=== PATIENT | female | born 1955 | race Hispanic/Latino ===

== ENCOUNTER 2018-05-29 17:48 | Emergency (ER) | payer MEDICAID ==
[2018-05-29 18:46] VITALS: BMI 18.8
[2018-05-29 18:52] VITALS: RESP 18; O2SAT 95
--- NOTE | 2018-05-29 20:26 | ED PDOC ---
Arrival/HPI - General Chief Complaint: Med Refill Time Seen by Provider: 05/29/18 20:21 Historian: Patient - History of Present Illness Narrative History of Present Illness (Text): 05/29/18 20:26 Marsha Guan is a 63 year old female, whose past medical history includes COPD, hyperlipidemia, and anxiety, who presents to the Emergency department requesting prescription refills. Patient states she has been unable to schedule an appointment with her PMD and is requesting refills of her Albuterol, Atrovent, and Oxycodone. Patient states she feels fine currently and denies any somatic complaints. Symptom Onset: Gradual Symptom Course: Unchanged Activities at Onset: Light Context: Home Past Medical History - Provider Review Nursing Documentation Reviewed: Yes - Infectious Disease Hx of Infectious Diseases: None - Pulmonary Hx Chronic Obstructive Pulmonary Disease (COPD): Yes - Musculoskeletal/Rheumatological Hx Back Pain: Yes Hx Falls: Yes - Psychiatric Hx Depression: No Hx Emotional Abuse: No Hx Physical Abuse: No Hx Substance Use: No - Suicidal Assessment Feels Threatened In Home Enviroment: No Family/Social History - Physician Review Nursing Documentation Reviewed: Yes Family/Social History: Unknown Family HX Smoking Status: Current Some Days Smoker Hx Alcohol Use: No Hx Substance Use: No Hx Substance Use Treatment: No Allergies/Home Meds Allergies/Adverse Reactions: Allergies No Known Allergies Allergy (Verified 04/19/12 20:07) Home Medications: Home Meds Medication Instructions Recorded Confirmed Acetaminophen/Oxycodone Hydr 04/19/12 04/19/12 [Percocet 325 mg-10 mg] Tiotropium [Spiriva] 8 mcg INH 04/19/12 04/19/12 Review of Systems - Physician Review All systems were reviewed & negative as marked: Yes - Review of Systems Constitutional: absent: Fevers Eyes: Normal ENT: Normal Respiratory: Normal. absent: SOB, Cough Cardiovascular: Normal. absent: Chest Pain Gastrointestinal: Normal. absent: Abdominal Pain, Diarrhea, Nausea, Vomiting Genitourinary Female: Normal. absent: Dysuria, Frequency, Hematuria, Urine Output Changes Musculoskeletal: Normal. absent: Back Pain, Neck Pain Skin: Normal. absent: Rash Neurological: Normal. absent: Headache, Dizziness Endocrine: Normal Hemo/Lymphatic: Normal Psychiatric: Normal Physical Exam Vital Signs Reviewed: Yes Vital Signs Temp Pulse Resp BP Pulse Ox 05/29/18 18:51 98.5 F 99 H 18 173/81 H 95 Temperature: Afebrile Blood Pressure: Hypertensive Pulse: Regular Respiratory Rate: Normal Appearance: Positive for: Well-Appearing, Non-Toxic, Comfortable Pain Distress: None Mental Status: Positive for: Alert and Oriented X 3 - Systems Exam Head: Present: Atraumatic, Normocephalic Pupils: Present: PERRL Extroacular Muscles: Present: EOMI Conjunctiva: Present: Normal Mouth: Present: Moist Mucous Membranes Neck: Present: Normal Range of Motion Back: Present: Normal Inspection. No: CVA Tenderness, Midline Tenderness, Paraspinal Tenderness Upper Extremity: Present: Normal Inspection. No: Cyanosis, Edema Lower Extremity: Present: Normal Inspection. No: Edema Neurological: Present: GCS=15, CN II-XII Intact, Speech Normal Skin: Present: Warm, Dry, Normal Color. No: Rashes Psychiatric: Present: Alert, Oriented x 3, Normal Insight, Normal Concentration Medical Decision Making ED Course and Treatment: 05/29/18 20:26 Impression: 63 year old female presents requesting medical refills. Plan: -- Reassess and disposition Progress Notes: Patient is in no acute distress. Patient is stable for discharge. Patient was instructed to follow up with the clinic if she is unable to schedule an appointment with her PMD for refills of her daily medication. - Scribe Statement The provider has reviewed the documentation as recorded by the Desiree Alejandro Provider Scribe Attestation: All medical record entries made by the Scribelieser were at my direction and personally dictated by me. I have reviewed the chart and agree that the record accurately reflects my personal performance of the history, physical exam, medical decision making, and the department course for this patient. I have also personally directed, reviewed, and agree with the discharge instructions and disposition. Disposition/Present on Arrival - Present on Arrival Any Indicators Present on Arrival: No History of DVT/PE: No History of Uncontrolled Diabetes: No Urinary Catheter: No History of Decub. Ulcer: No History Surgical Site Infection Following: None - Disposition Have Diagnosis and Disposition been Completed?: Yes Diagnosis: Encounter for medication refill Disposition: HOME/ ROUTINE Disposition Time: 20:28 Patient Plan: Discharge Patient Problems: Current Active Problems Problem Status Onset Encounter for medication refill Acute Condition: STABLE Additional Instructions: [facility] Prescriptions: Albuterol 0.083% [Albuterol 0.083% Inhal Anaya (2.5 mg/3 ml) UD] 3 ml IH Q4 PRN #1 pkg PRN Reason: Wheezing Fluticasone Propionate [Flovent Hfa] 2 puff IH BID #1 ml oxyCODONE [oxyCODONE Immediate Release Tab] 20 mg PO QID PRN #10 tab PRN Reason: Pain, Moderate (4-7) Referrals: Sánchez Bauer MD [Primary Care Provider] - Follow up with primary [facility] [Outside] - Follow up with primary Francie Emmanuel MD [Medical Doctor] - Follow up with primary Forms: [employer] (Bengali)
[2018-05-29 20:48] VITALS: BP 169/72; PULSE 92; TEMP 98.4
== END 2018-05-29 20:36 | disposition home or self-care (01) ==
LOC: ED 17:48
DX: Z76.0 Encounter for issue of repeat prescription (principal); E78.5 Hyperlipidemia, unspecified; J44.9 Chronic obstructive pulmonary disease, unspecified; F41.9 Anxiety disorder, unspecified

== ENCOUNTER 2018-06-19 16:09 | Emergency (ER) | payer MEDICAID ==
[2018-06-19 16:11] VITALS: BMI 18.8
[2018-06-19 18:27] VITALS: BP 150/90; PULSE 110; RESP 18; TEMP 98; O2SAT 96
--- NOTE | 2018-06-19 19:03 | ED PDOC ---
Arrival/HPI - General Chief Complaint: Med Refill Time Seen by Provider: 06/19/18 18:34 Historian: Patient - History of Present Illness Narrative History of Present Illness (Text): 06/19/18 19:21 63F w/ h/o chronic back pain presenting to the Emergency Room for a medication refill. Patient states she had run out of her Percocet that was last seen on the 05/29/18 with similar complaint and was discharged with 10 tabs of 10/325mg of Percocet lasting her 3 days. The patient reports securing and visit with a roller painter, but is requesting pain medications until she able to see her new physician. She denies any somatic complaints such as chest pain, shortness of breath, fevers, chills, abdominal pain, nausea or emesis at this time. PCP: Dr. Barnes Time/Duration: Prior to Arrival Symptom Onset: Sudden Symptom Course: Unchanged Activities at Onset: Rest Context: Home Past Medical History - Provider Review Nursing Documentation Reviewed: Yes - Travel History Have you recently traveled outside [place] w/in the past 3 mons?: No - Infectious Disease Hx of Infectious Diseases: None - Reproductive Menopause: Yes - Cardiac Hx Cardiac Disorders: No - Pulmonary Hx Chronic Obstructive Pulmonary Disease (COPD): Yes - Neurological Hx Neurological Disorder: No - HEENT Hx HEENT Disorder: No - Renal Hx Renal Disorder: No - Endocrine/Metabolic Hx Endocrine Disorders: No - Hematological/Oncological Hx Blood Disorders: No - Integumentary Hx Dermatological Disorder: No - Musculoskeletal/Rheumatological Hx Back Pain: Yes Hx Falls: Yes - Gastrointestinal Hx Gastrointestinal Disorders: No - Genitourinary/Gynecological Hx Genitourinary Disorders: No - Psychiatric Hx Psychophysiologic Disorder: No Hx Substance Use: No - Anesthesia Hx Anesthesia: No - Suicidal Assessment Feels Threatened In Home Enviroment: No Family/Social History - Physician Review Nursing Documentation Reviewed: Yes Family/Social History: Unknown Family HX Smoking Status: Current Some Days Smoker Hx Alcohol Use: No Hx Substance Use: No Hx Substance Use Treatment: No Allergies/Home Meds Allergies/Adverse Reactions: Allergies No Known Allergies Allergy (Verified 04/19/12 20:07) Home Medications: Home Meds Medication Instructions Recorded Confirmed Acetaminophen/Oxycodone Hydr 04/19/12 04/19/12 [Percocet 325 mg-10 mg] Tiotropium [Spiriva] 8 mcg INH 04/19/12 04/19/12 Review of Systems - Physician Review All systems were reviewed & negative as marked: Yes Physical Exam Vital Signs Reviewed: Yes Vital Signs Temp Pulse Resp BP Pulse Ox 06/19/18 18:26 98.0 F 110 H 18 150/90 96 Temperature: Afebrile Blood Pressure: Normal Pulse: Tachycardic Respiratory Rate: Normal Appearance: Positive for: Well-Appearing, Non-Toxic, Comfortable Mental Status: Positive for: Alert and Oriented X 3 - Systems Exam Head: Present: Atraumatic, Normocephalic Pupils: Present: PERRL Extroacular Muscles: Present: EOMI Conjunctiva: Present: Normal Mouth: Present: Moist Mucous Membranes Respiratory/Chest: Present: Clear to Auscultation, Good Air Exchange Cardiovascular: Present: Regular Rate and Rhythm, Normal S1, S2 Neurological: Present: GCS=15, Speech Normal Skin: Present: Warm, Dry, Normal Color Psychiatric: Present: Alert, Oriented x 3, Normal Insight, Normal Concentration Medical Decision Making ED Course and Treatment: 06/19/18 19:12 Impression 63F w/ h/o of chronic pain presenting for medication refill Plan --[place] --Reassess & disposition Progress Notes [place] evidence of patient refilling medication in between her last ER visit on 05/29/2018 and current ER visit. Patient urged to follow up with her PCP for medications and will only be given 4 pills for a 3 day course. She demonstrates understanding and will follow up with her PCP. She is stable for DC. Disposition/Present on Arrival - Present on Arrival Any Indicators Present on Arrival: No History of DVT/PE: No History of Uncontrolled Diabetes: No Urinary Catheter: No History of Decub. Ulcer: No History Surgical Site Infection Following: None - Disposition Have Diagnosis and Disposition been Completed?: Yes Diagnosis: Medication refill Disposition: HOME/ ROUTINE Disposition Time: 19:00 Patient Plan: Discharge Condition: STABLE Print Language: ETHIOPIAN Additional Instructions: Please follow up with your PCP for pain medications Prescriptions: Oxycodone HCl/Acetaminophen [Percocet 10-325 mg Tablet] 1 each PO PRN PRN 3 Days #4 tablet PRN Reason: Pain, Moderate (4-7) Referrals: Natalia Barnes MD [Staff Provider] - Follow up with primary
== END 2018-06-19 19:14 | disposition home or self-care (01) ==
LOC: ED 16:09
DX: Z76.0 Encounter for issue of repeat prescription (principal)

== ENCOUNTER 2018-06-27 19:05 | Emergency (ER) | payer MEDICAID ==
[2018-06-27 19:06] VITALS: BMI 18.8
[2018-06-27] MEDS ORDERED: oxyCODONE 20 mg Immediate Release Tab PO STA (19:40)
[2018-06-27] MEDS ORDERED: oxyCODONE 10 mg Immediate Release Tab PO STA (19:40)
--- NOTE | 2018-06-27 19:42 | ED PDOC ---
Arrival/HPI - General Chief Complaint: Med Refill Time Seen by Provider: 06/27/18 19:23 Historian: Patient - History of Present Illness Narrative History of Present Illness (Text): 06/27/18 19:38 63 year old female, with past medical history of chronic lower back pain, presents to the ED for pain medication refill today. Patient reports running out of her oxycodon after last prescription refill here in the ED on 06/19/18. Haily ent informs visiting her pain management doctor on 06/25/18, however was advised to come to the ED instead for prescription refill. Patient currently denies any somatic complaints. Patient denies any fevers, chills, headache, dizziness, chest pain, shortness of breath, dyspnea on exertion, cough, abdominal pain, nausea, vomiting, diarrhea, back pain, neck pain, or any other complaints. Time/Duration: Prior to Arrival Symptom Onset: Gradual Activities at Onset: Light Context: Home Past Medical History - Provider Review Nursing Documentation Reviewed: Yes - Infectious Disease Hx of Infectious Diseases: None - Cardiac Hx Cardiac Disorders: No - Pulmonary Hx Respiratory Disorders: Yes Hx Chronic Obstructive Pulmonary Disease (COPD): Yes - Neurological Hx Neurological Disorder: No - HEENT Hx HEENT Disorder: No - Renal Hx Renal Disorder: No - Endocrine/Metabolic Hx Endocrine Disorders: No - Hematological/Oncological Hx Blood Disorders: No - Integumentary Hx Dermatological Disorder: No - Musculoskeletal/Rheumatological Hx Musculoskeletal Disorders: Yes Hx Back Pain: Yes Hx Falls: Yes - Gastrointestinal Hx Gastrointestinal Disorders: No - Genitourinary/Gynecological Hx Genitourinary Disorders: No - Psychiatric Hx Psychophysiologic Disorder: No Hx Substance Use: No - Anesthesia Hx Anesthesia: No - Suicidal Assessment Feels Threatened In Home Enviroment: No Family/Social History - Physician Review Nursing Documentation Reviewed: Yes Family/Social History: No Known Family HX Smoking Status: Current Some Days Smoker Hx Alcohol Use: No Hx Substance Use: No Hx Substance Use Treatment: No Allergies/Home Meds Allergies/Adverse Reactions: Allergies No Known Allergies Allergy (Verified 07/02/18 21:11) Home Medications: Home Meds Medication Instructions Recorded Confirmed Tiotropium [Spiriva] 8 mcg INH DAILY 04/19/12 07/02/18 Review of Systems - Physician Review All systems were reviewed & negative as marked: Yes - Review of Systems Constitutional: absent: Fevers Respiratory: absent: SOB, Cough Cardiovascular: absent: Chest Pain Gastrointestinal: absent: Abdominal Pain, Nausea, Vomiting Genitourinary Female: absent: Dysuria, Urine Output Changes Musculoskeletal: absent: Neck Pain Skin: absent: Rash Neurological: absent: Headache, Dizziness Psychiatric: absent: Anxiety Physical Exam Vital Signs Reviewed: Yes Vital Signs Temp Pulse Resp BP Pulse Ox 06/27/18 19:16 98.8 F 102 H 16 164/87 H 97 Temperature: Afebrile Blood Pressure: Normal Pulse: Tachycardic Respiratory Rate: Normal Appearance: Positive for: Well-Appearing, Non-Toxic, Comfortable Pain Distress: None Mental Status: Positive for: Alert and Oriented X 3 - Systems Exam Head: Present: Atraumatic, Normocephalic Pupils: Present: PERRL Extroacular Muscles: Present: EOMI Conjunctiva: Present: Normal Neck: Present: Normal Range of Motion Respiratory/Chest: Present: Clear to Auscultation, Good Air Exchange. No: Respiratory Distress, Accessory Muscle Use Cardiovascular: Present: Regular Rate and Rhythm, Normal S1, S2. No: Murmurs Abdomen: No: Tenderness, Distention, Peritoneal Signs Back: Present: Normal Inspection Upper Extremity: Present: Normal Inspection. No: Cyanosis, Edema Lower Extremity: Present: Normal Inspection. No: Edema Neurological: Present: GCS=15, CN II-XII Intact, Speech Normal Skin: Present: Warm, Dry, Normal Color. No: Rashes Psychiatric: Present: Alert, Oriented x 3, Normal Insight, Normal Concentration Medical Decision Making ED Course and Treatment: 06/27/18 19:43 Impression: 63 year old female presents to the ED for pain medication refill. Plan: -- Prescription Refill -- Reassess and disposition Prior Visits: Notes and results from previous visits were reviewed. Progress Notes: 06/27/18 19:43 JANES PNP reviewed, shows no recent prescription refill in the last 8 days. Patient will be provided refill for 10 days in the ED and advised to follow-up with a new pain management doctor or her PMD for further medication management. - Scribe Statement The provider has reviewed the documentation as recorded by the Scribe Anna Hernández. All medical record entries made by the Scribe were at my direction and personally dictated by me. I have reviewed the chart and agree that the record accurately reflects my personal performance of the history, physical exam, medical decision making, and the department course for this patient. I have also personally directed, reviewed, and agree with the discharge instructions and disposition. Disposition/Present on Arrival - Present on Arrival Any Indicators Present on Arrival: No History of DVT/PE: No History of Uncontrolled Diabetes: No Urinary Catheter: No History of Decub. Ulcer: No History Surgical Site Infection Following: None - Disposition Have Diagnosis and Disposition been Completed?: Yes Diagnosis: Chronic pain Disposition: HOME/ ROUTINE Disposition Time: 20:00 Condition: GOOD Discharge Instructions (ExitCare): Chronic Pain (DC) Forms: [employer] (Slovak)
[2018-06-27 20:05] VITALS: BP 147/68; PULSE 89; RESP 18; TEMP 98.7; O2SAT 99
== END 2018-06-27 20:00 | disposition home or self-care (01) ==
LOC: ED 19:05
DX: G89.29 Other chronic pain (principal)

== ENCOUNTER 2018-07-02 21:04 | Emergency (ER) | payer MEDICAID ==
[2018-07-02 21:04] VITALS: BMI 18.8
[2018-07-02 21:17] VITALS: TEMP 98.7
--- NOTE | 2018-07-02 22:07 | ED PDOC ---
Arrival/HPI - General Chief Complaint: Med Refill Historian: Patient - History of Present Illness Narrative History of Present Illness (Text): 07/02/18 22:06 63 y/o female, whose past medical history includes chronic history of lower back pain which she is chronically on oxycodone 20mg po qid, who presents to the emergency department for a medication refill of Oxycodone 20mg po qid. Patient states she is taking Oxycodone 20mg PO qid every day and is here today since she is out of it today. Patient notes the pain feels exactly the same in severity/characteristic and has not changed in comparison to before. Patient denies any new falls or injuries. Patient denies any other complaints at this time. NO urinary or bowel incontinence or retention. PMD: Jordan Savage Time/Duration: Prior to Arrival Symptom Onset: Sudden Symptom Course: Unchanged Activities at Onset: Light Past Medical History - Provider Review Nursing Documentation Reviewed: Yes - Infectious Disease Hx of Infectious Diseases: None - Cardiac Hx Cardiac Disorders: No - Pulmonary Hx Respiratory Disorders: Yes Hx Chronic Obstructive Pulmonary Disease (COPD): Yes - Neurological Hx Neurological Disorder: No - HEENT Hx HEENT Disorder: No - Renal Hx Renal Disorder: No - Endocrine/Metabolic Hx Endocrine Disorders: No - Hematological/Oncological Hx Blood Disorders: No - Integumentary Hx Dermatological Disorder: No - Musculoskeletal/Rheumatological Hx Musculoskeletal Disorders: Yes Hx Back Pain: Yes Hx Falls: Yes - Gastrointestinal Hx Gastrointestinal Disorders: No - Genitourinary/Gynecological Hx Genitourinary Disorders: No - Psychiatric Hx Psychophysiologic Disorder: No Hx Substance Use: No - Anesthesia Hx Anesthesia: No - Suicidal Assessment Feels Threatened In Home Enviroment: No Family/Social History - Physician Review Nursing Documentation Reviewed: Yes Family/Social History: No Known Family HX Smoking Status: Current Some Days Smoker Hx Alcohol Use: No Hx Substance Use: No Hx Substance Use Treatment: No Allergies/Home Meds Allergies/Adverse Reactions: Allergies No Known Allergies Allergy (Verified 07/02/18 21:11) Home Medications: Home Meds Medication Instructions Recorded Confirmed Tiotropium [Spiriva] 8 mcg INH DAILY 04/19/12 07/02/18 Review of Systems - Physician Review All systems were reviewed & negative as marked: Yes - Review of Systems Constitutional: absent: Fatigue, Fevers ENT: absent: Hearing Changes Respiratory: absent: SOB, Cough Cardiovascular: absent: Chest Pain Gastrointestinal: absent: Abdominal Pain, Nausea, Vomiting Musculoskeletal: Back Pain (+ back pain ). absent: Normal, Arthralgias, Neck Pain, Myalgias Skin: absent: Rash, Pruritis Neurological: absent: Headache, Dizziness Psychiatric: absent: Anxiety, Depression, Suicidal Ideation Physical Exam Vital Signs Reviewed: Yes Vital Signs Temp Pulse Resp BP Pulse Ox 07/02/18 21:13 98.7 F 110 H 18 115/79 95 Temperature: Afebrile Blood Pressure: Normal Pulse: Tachycardic Respiratory Rate: Normal Appearance: Positive for: Well-Appearing, Non-Toxic Pain Distress: Moderate Mental Status: Positive for: Alert and Oriented X 3 - Systems Exam Head: Present: Atraumatic, Normocephalic Pupils: Present: PERRL Extroacular Muscles: Present: EOMI Conjunctiva: Present: Normal Ears: Present: NORMAL TM, Normal Canal. No: Erythema Mouth: Present: Moist Mucous Membranes Pharnyx: Present: Normal. No: ERYTHEMA, EXUDATE, TONSILS ENLARGED Nose (External): Present: Atraumatic. No: Abrasion, Contusion, Laceration Nose (Internal): Present: Normal Inspection, No Active Bleeding. No: Rhinorrhea, Septal Hematoma, Epistaxis Neck: Present: Normal Range of Motion, Trachea Midline. No: Meningeal Signs, MIDLINE TENDERNESS, Paraspinal Tenderness, Lymphadenopathy Respiratory/Chest: Present: Clear to Auscultation, Good Air Exchange. No: Respiratory Distress, Accessory Muscle Use, Wheezes, Decreased Breath Sounds, Rales, Retracting, Rhonchi, Tachypneic, Tender to Palpation Cardiovascular: Present: Regular Rate and Rhythm, Normal S1, S2. No: Murmurs Abdomen: No: Tenderness, Distention, Peritoneal Signs, Rebound, Guarding Back: Present: Normal Inspection. No: CVA Tenderness, Midline Tenderness, Paraspinal Tenderness, Pain with Leg Raise, Decubitus Ulcer Upper Extremity: Present: Normal Inspection. No: Cyanosis, Edema Lower Extremity: Present: Normal Inspection. No: Edema Neurological: Present: GCS=15, CN II-XII Intact, Speech Normal, Motor Func Grossly Intact, Gait Normal, Memory Normal Skin: Present: Warm, Dry, Normal Color. No: Rashes Psychiatric: Present: Alert, Oriented x 3, Normal Insight, Normal Concentration Medical Decision Making ED Course and Treatment: 07/02/18 22:06 Impression: 63 year old female who presents to the emergency department for a prescription refill of Oxycodone. Plan: -- Oxycodone Immediate Release Tab 20mg PO -- Reassess and disposition Prior Visits: Notes and results from previous visits were reviewed. Progress Notes: 07/02/18 22:06 I explained to patient that we do not do prescription refills for Oxycodone, however will treat her for her pain this evening. Patient will follow up with PMD and pain management. 07/02/18 22:37 -Pt. stated that she took the pill, request to be discharged home, feels better and no pain now, stated that she is not driving home. She has cars to come pick her up. -Discharge home with lidoderm patch, follow up with your own pmd and pain management/neurosurgery within2 days, return to the ER for any new or worsening signs or symptoms. - PA / [employer] FOR[employer] SPECIALIST / Resident Statement / has reviewed & agrees with the documentation as recorded. - Scribe Statement The provider has reviewed the documentation as recorded by the Scribe Hoda Mendoza All medical record entries made by the Desiree were at my direction and personally dictated by me. I have reviewed the chart and agree that the record accurately reflects my personal performance of the history, physical exam, medical decision making, and the department course for this patient. I have also personally directed, reviewed, and agree with the discharge instructions and disposition. Disposition/Present on Arrival - Present on Arrival Any Indicators Present on Arrival: No History of DVT/PE: No History of Uncontrolled Diabetes: No Urinary Catheter: No History of Decub. Ulcer: No History Surgical Site Infection Following: None - Disposition Have Diagnosis and Disposition been Completed?: Yes Diagnosis: Pain management Disposition: HOME/ ROUTINE Disposition Time: 22:39 Patient Plan: Discharge Condition: IMPROVED Additional Instructions: Discharge home with lidoderm patch, follow up with your own pmd and pain management/neurosurgery within2 days, return to the ER for any new or worsening signs or symptoms. Prescriptions: Lidocaine 5% [Lidoderm] 1 patch TOP DAILY PRN #14 patch PRN Reason: Other Referrals: Augusto Wan MD [Staff Provider] - Follow up with primary [facility] [Outside] - Follow up with primary Forms: [employer] (Maldivian), WORK NOTE
[2018-07-02] MEDS ORDERED: oxyCODONE 10 mg Immediate Release Tab PO STA (22:14)
[2018-07-02 22:26] VITALS: BP 113/74; PULSE 90
[2018-07-02 23:14] VITALS: RESP 16; O2SAT 100
== END 2018-07-02 22:55 | disposition home or self-care (01) ==
LOC: ED 21:04
DX: G89.29 Other chronic pain (principal)

== ENCOUNTER 2018-08-08 16:50 | Outpatient (CLI) | payer MEDICAID | END 2018-08-08 16:51 | disposition home or self-care (01) | LOC: RAD 16:50 ==

== ENCOUNTER 2018-08-15 17:58 | Outpatient (CLI) | payer MEDICAID | END 2018-08-15 17:59 | disposition home or self-care (01) | LOC: RAD 17:58 ==

== ENCOUNTER 2018-09-10 22:54 | Inpatient (IN) | payer MEDICAID ==
[2018-09-10 23:02] VITALS: BMI 18.5
[2018-09-10] MEDS ORDERED: Sodium Chloride 0.9% 1,000 ML IV ONE (23:09)
--- NOTE | 2018-09-10 23:18 | ED PDOC ---
Arrival/HPI - General Chief Complaint: Abdominal Pain Time Seen by Provider: 09/10/18 22:55 - History of Present Illness Narrative History of Present Illness (Text): 63 yr old female w/ hx of COPD, chronic back pain, tonsillectomy p/w abdominal pain, nausea and vomiting. Pt notes abdominal pain is suprapubic, and epigastric, a sharp stabbing a throbbing sensation. First time occurrence. Pt notes vomiting since 9am 10 times and notes that her last meal was last night at 3am: icr cream. She notes mild dysuria but no enuresis / encoparesis or sensation loss in her legs. She denies any fall or trauma. She notes non-bilious non bloody vomiting. She notes one episode of diarrhea at 4pm, non dark, non bloody. No recent antibiotics. She otherwise denies any chest pain, shortness of breath, constipation, dark or bloody stool, headache or weakness. No other complaints Past Medical History - Infectious Disease Hx of Infectious Diseases: None - Cardiac Hx Cardiac Disorders: No - Pulmonary Hx Respiratory Disorders: Yes Hx Chronic Obstructive Pulmonary Disease (COPD): Yes - Neurological Hx Neurological Disorder: No - HEENT Hx HEENT Disorder: No - Renal Hx Renal Disorder: No - Endocrine/Metabolic Hx Endocrine Disorders: No - Hematological/Oncological Hx Blood Disorders: No - Integumentary Hx Dermatological Disorder: No - Musculoskeletal/Rheumatological Hx Musculoskeletal Disorders: Yes Hx Back Pain: Yes Hx Falls: Yes - Gastrointestinal Hx Gastrointestinal Disorders: No - Genitourinary/Gynecological Hx Genitourinary Disorders: No - Psychiatric Hx Psychophysiologic Disorder: No Hx Substance Use: No - Anesthesia Hx Anesthesia: No Hx Anesthesia Reactions: No Hx Malignant Hyperthermia: No - Suicidal Assessment Feels Threatened In Home Enviroment: No Family/Social History Family/Social History: Unknown Family HX Smoking Status: Current Some Days Smoker Hx Alcohol Use: No Hx Substance Use: No Hx Substance Use Treatment: No Allergies/Home Meds Allergies/Adverse Reactions: Allergies No Known Allergies Allergy (Verified 07/02/18 21:11) Home Medications: Home Meds Medication Instructions Recorded Confirmed Tiotropium [Spiriva] 8 mcg INH DAILY 04/19/12 09/10/18 Review of Systems - Review of Systems Constitutional: absent: Fatigue, Weight Change, Fevers Eyes: absent: Vision Changes, Photophobia ENT: absent: Hearing Changes, Tinnitus Respiratory: absent: SOB, Cough, Sputum Cardiovascular: absent: Chest Pain, Palpitations Gastrointestinal: Abdominal Pain, Diarrhea, Nausea, Vomiting. absent: Constipation, Hematochezia, Hematemesis Genitourinary Female: Dysuria. absent: Frequency, Hematuria, Urine Output Changes, Vaginal Bleeding, Vaginal Discharge Musculoskeletal: absent: Arthralgias, Back Pain, Neck Pain Skin: absent: Rash, Pruritis Neurological: absent: Headache Endocrine: absent: Diaphoresis Hemo/Lymphatic: absent: Adenopathy Physical Exam Vital Signs Temp Pulse Resp BP Pulse Ox 09/10/18 23:02 98.2 F 104 H 18 187/89 H 99 Temperature: Afebrile Blood Pressure: Hypertensive Pulse: Tachycardic Respiratory Rate: Normal Appearance: Positive for: Well-Appearing, Non-Toxic, Comfortable Pain Distress: Mild Mental Status: Positive for: Alert and Oriented X 3 - Systems Exam Head: Present: Atraumatic, Normocephalic Pupils: Present: PERRL Extroacular Muscles: Present: EOMI Conjunctiva: Present: Normal Mouth: Present: Moist Mucous Membranes Neck: Present: Normal Range of Motion. No: Meningeal Signs, MIDLINE TENDERNESS Respiratory/Chest: Present: Clear to Auscultation, Good Air Exchange. No: Respiratory Distress, Accessory Muscle Use Cardiovascular: Present: Regular Rate and Rhythm, Normal S1, S2. No: Murmurs Abdomen: Present: Tenderness (suprapubic, epigastric). No: Distention, Peritoneal Signs, McBurney's Point Tender, Rovsing's Sign Present Back: Present: Normal Inspection. No: CVA Tenderness, Midline Tenderness Upper Extremity: Present: Normal Inspection. No: Cyanosis, Edema Lower Extremity: Present: Normal Inspection. No: Edema Neurological: Present: GCS=15, CN II-XII Intact, Speech Normal Skin: Present: Warm, Dry, Normal Color. No: Rashes Psychiatric: Present: Alert, Oriented x 3, Normal Insight, Normal Concentration Medical Decision Making ED Course and Treatment: 63 yr old female p/w abdominal pain, nausea and vomiting. Epigastric and suprapubic mild tenderness on exam. No CVAT on exam. No fall or trauma. No chest pain or shortness of breath. Likely gastroenteritis given nausea vomiting but will seek CT given possible colitis. 09/10/18 23:34 EK, nsr, no stemi 09/11/18 00:41 WBC 19k, tachy at 104 initially and lactic of 3.6, code sepsis called. Pressure stable, pt in NAD, fluids running, morphine given for pain Pending CT 09/11/18 03:[address] appreciate consult w/ Dr. Javier: To admit to his service pt in NAD, agreeable to plan. Remains without guarding on abdominal re-exam. - RAD Interpretation Radiology Orders: 09/10/18 23:09 ABD & PELVIS IV CONTRAST ONLY [CT] Stat - Medication Orders Current Medication Orders: Sodium Chloride (Sodium Chloride 0.9%) 1,000 mls @ 250 mls/hr IV .Q4H ONE Stop: 09/11/18 03:08 Discontinued Medications Ondansetron HCl (Zofran Inj) 4 mg IVP STAT STA Stop: 09/10/18 23:10 Disposition/Present on Arrival - Present on Arrival Any Indicators Present on Arrival: No History of DVT/PE: No History of Uncontrolled Diabetes: No Urinary Catheter: No History of Decub. Ulcer: No History Surgical Site Infection Following: None - Disposition Have Diagnosis and Disposition been Completed?: Yes Diagnosis: Colitis, Sepsis Disposition Time: 03:53 Condition: STABLE Discharge Instructions (ExitCare): Sepsis (ED) Forms: [employer] (Turkmen)
[2018-09-10 23:29] LABS: BASO # 0.02 K/mm3 (0.0-2.0); BASO % 0.1 % (0.0-3.0); HEMOGLOBIN 17.3 g/dL (12.0-16.0); LYMPH # 1.3 (1.2-3.4); LYMPH % 6.8 % (22.0-35.0); MEAN CELL VOLUME 93.2 fl (80.0-105.0); MEAN CORPUSCULAR HEMOGLOBIN 31.7 pg (25.0-35.0); MEAN PLATELET VOLUME 10.3 fl (7.0-11.0); MONO # 0.4 (0.1-0.6); MONO % 2.2 % (1.0-6.0); PLATELET COUNT 265 10^3/uL (120.0-450.0); RBC 5.46 10^6/uL (3.5-6.1); RED CELL DISTRIBUTION WIDTH 14.2 % (11.5-14.5); WHITE BLOOD COUNT 19.8 10^3/uL (4.5-11.0)
[2018-09-10 23:38] LABS: ALB/GLOB RATIO 1.3 (1.1-1.8); ALBUMIN 5.1 g/dL (3.0-4.8); ALT/SGPT 15 U/L (7-56); AST/SGOT 34 U/L (14-36); BLOOD UREA NITROGEN 11 mg/dL (7-21); CALCIUM 10.4 mg/dL (8.4-10.5); GFR NON-AFRICAN AMERICAN > 60; LIPASE 53 U/L (23-300)
[2018-09-10] MEDS ORDERED: Iohexol 350 MG/100 ML VIAL ONE (23:48)
[2018-09-11] MEDS ORDERED: Morphine 4 mg/ml ISec IVP STA (00:08)
[2018-09-11 00:18] LABS: BAND 1 % (0-2); LYMPHOCYTE 5 % (22.0-35.0); MONOCYTE 2 % (1.0-6.0); NEUTROPHIL 92 % (50.0-70.0); PLATELET ESTIMATE NORMAL (NORMAL)
[2018-09-11 00:30] LABS: VENOUS BLOOD GAS BASE EXCESS 1.1 mmol/L (0.0-2.0); VENOUS BLOOD GAS PO2 82 mm/Hg (30-55); VENOUS BLOOD PH 7.44 (7.32-7.43)
[2018-09-11] MEDS ORDERED: cefTRIAXone 1 gm 1 GM/100 ML BAG IVPB STA (01:13)
[2018-09-11] MEDS ORDERED: Vancomycin 1gm in NS 250ml 1 GM/250 ML BAG IVPB STA (01:15)
[2018-09-11 02:41] LABS: URINE BILIRUBIN NEGATIVE (NEGATIVE); URINE BLOOD MODERATE (NEGATIVE); URINE GLUCOSE (UA) 250 mg/dL (NEGATIVE); URINE LEUKOCYTE ESTERASE NEGATIVE Leu/uL (NEGATIVE); URINE PROTEIN TRACE mg/dL (<30 mg/dL); URINE UROBILINOGEN 0.2 E.U./dL (<1 E.U./dL)
[2018-09-11 02:43] LABS: URINE COLOR YELLOW (YELLOW)
[2018-09-11 02:44] LABS: URINE APPEARANCE CLEAR (CLEAR)
[2018-09-11 03:07] LABS: URINE EPITHELIAL CELLS 0 - 2 /hpf (0-5); URINE WBC 0 - 2 /hpf (0-6)
[2018-09-11 04:31] LABS: VENOUS BLOOD GAS BASE EXCESS 2.6 mmol/L (0.0-2.0); VENOUS BLOOD GAS PO2 44 mm/Hg (30-55); VENOUS BLOOD PH 7.43 (7.32-7.43)
[2018-09-11] MEDS ORDERED: Levalbuterol 1.25 MG/3 ML Inhal Soln UD IH PRN (06:00)
[2018-09-11] MEDS ORDERED: Morphine 2 mg/ml ISec SC PRN (06:02)
[2018-09-11] MEDS ORDERED: Sodium Chloride 0.9% 1,000 ML IV SCH ×2 (06:15→16:21)
[2018-09-11] MEDS: metroNIDAZOLE IV 500 mg/100 ml 500 MG/100 ML BAG IVPB SCH ×3 (06:50→21:18)
[2018-09-11] MEDS: Arformoterol 15 mcg/2 ml Inh Sol IH SCH ×2 (07:42→20:05)
[2018-09-11] MEDS: Budesonide 0.5 mg/2 ml Inhal Susp UD IH SCH ×2 (07:43→20:05)
--- NOTE | 2018-09-11 09:35 | CARD ---
APPROVED REPORT Date of service: 09/10/2018 EKG Measurement Heart [id number] <Conclusion> Normal sinus rhythm Normal ECG
[2018-09-11] MEDS: cefTRIAXone 1 gm 1 GM/100 ML BAG IVPB SCH (09:54)
[2018-09-11 10:02] LABS: HEMOGLOBIN 15.5 g/dL (12.0-16.0); MEAN CELL VOLUME 92.8 fl (80.0-105.0); MEAN CORPUSCULAR HEMOGLOBIN 31.8 pg (25.0-35.0); MEAN CORPUSCULAR HGB CONC 34.2 g/dl (31.0-37.0); MEAN PLATELET VOLUME 10.2 fl (7.0-11.0); RBC 4.88 10^6/uL (3.5-6.1); RED CELL DISTRIBUTION WIDTH 14.2 % (11.5-14.5)
[2018-09-11 10:05] LABS: WHITE BLOOD COUNT 26.2 10^3/uL (4.5-11.0)
--- NOTE | 2018-09-11 10:25 | CT ---
Date of service: 09/11/2018 PROCEDURE: CT Abdomen and Pelvis with contrast HISTORY: abd pain, n/v COMPARISON: None. TECHNIQUE: Contrast dose: 100 cc of Omni 350 Radiation dose: Total exam DLP = 180.43 mGy-cm. This CT exam was performed using one or more of the following dose reduction techniques: Automated exposure control, adjustment of the mA and/or kV according to patient size, and/or use of iterative reconstruction technique. FINDINGS: LOWER THORAX: Unremarkable. LIVER: Unremarkable. No gross lesion or ductal dilatation. GALLBLADDER AND BILE DUCTS: Unremarkable. PANCREAS: Unremarkable. No gross lesion or ductal dilatation. SPLEEN: Unremarkable. ADRENALS: Unremarkable. No mass. KIDNEYS AND URETERS: Unremarkable. No hydronephrosis. No solid mass. VASCULATURE: Unremarkable. No aortic aneurysm. Aortic calcification BOWEL: Unremarkable. No obstruction. No gross mural thickening. APPENDIX: Normal appendix. PERITONEUM: Unremarkable. No free fluid. No free air. LYMPH NODES: Unremarkable. No enlarged lymph nodes. BLADDER: Unremarkable. REPRODUCTIVE: Unremarkable. BONES: No acute fracture. OTHER FINDINGS: The report concurs with the preliminary [facility] report IMPRESSION: Unremarkable contrast enhanced CT of the abdomen and pelvis.
[2018-09-11 10:28] LABS: ALB/GLOB RATIO 1.3 (1.1-1.8); ALBUMIN 4.2 g/dL (3.0-4.8); ALT/SGPT 13 U/L (7-56); AST/SGOT 28 U/L (14-36); BLOOD UREA NITROGEN 9 mg/dL (7-21); CALCIUM 9.4 mg/dL (8.4-10.5); GFR NON-AFRICAN AMERICAN > 60
--- NOTE | 2018-09-11 10:43 | CP.PCM.CON ---
<Vernon Omer - Last Filed: 09/11/18 16:52> History of Present Illness - History of Present Illness History of Present Illness: PGY6 GI Fellow Consult Note Patient is a 63yo female with PMHx significant for COPD, chronic back pain, anxiety, dyslipidemia, idiopathic gastroparesis (per pt), polycythemia vera (per pt) who presented with one day of abdominal pain. Pain began suddenly upon waki ng yesterday morning and was 10/10 at onset. Stabbing pains were located throughout the abdomen and did not localize to any particular spot. She developed nausea, vomiting, fever along with 2-3 episodes of loose stool in the afternoon. As pain did not subside by yesterday evening, she presented to the ED for further evaluation. At this time, symptoms have resolved and she denies any ongoing abdominal pain or nausea. Denies any recent antibiotic use, travel or sick contacts. No unusual food intake outside of carton ice cream she recently purchased the night prior to onset. 12 system ROS performed and negative except where stated PMHx: See HPI PSHx: Tonsillectomy FHx: Discussed with patient and she denies Social: Former EtOH use >10 years ago; stopped smoking 2 weeks ago; denies illicit drug use Endo: No prior endoscopic evaluations on record Past Patient History - Infectious Disease Hx of Infectious Diseases: None - Past Social History Smoking Status: Current Some Days Smoker - CARDIAC Hx Cardiac Disorders: No - PULMONARY Hx Respiratory Disorders: Yes Hx Chronic Obstructive Pulmonary Disease (COPD): Yes - NEUROLOGICAL Hx Neurological Disorder: No - HEENT Hx HEENT Problems: No - RENAL Hx Chronic Kidney Disease: No - ENDOCRINE/METABOLIC Hx Endocrine Disorders: No - HEMATOLOGICAL/ONCOLOGICAL Hx Blood Disorders: No - INTEGUMENTARY Hx Dermatological Problems: No - MUSCULOSKELETAL/RHEUMATOLOGICAL Hx Falls: Yes - GASTROINTESTINAL Hx Gastrointestinal Disorders: No - GENITOURINARY/GYNECOLOGICAL Hx Genitourinary Disorders: No - PSYCHIATRIC Hx Psychophysiologic Disorder: No Hx Substance Use: No - SURGICAL HISTORY Hx Surgeries: No - ANESTHESIA Hx Anesthesia: No Hx Anesthesia Reactions: No Hx Malignant Hyperthermia: No Meds Allergies/Adverse Reactions: Allergies Allergy/AdvReac Type Severity Reaction Status Date / Time No Known Allergies Allergy Verified 07/02/18 21:11 - Medications Medications: Current Medications Acetaminophen (Tylenol 325mg Tab) 650 mg PO Q6H PRN PRN Reason: fever 101.4 Arformoterol Tartrate (Brovana) 15 mcg IH [id number] [facility] Last Admin: 09/11/18 07:42 Dose: 15 mcg Budesonide (Pulmicort Respules) 0.5 mg IH [id number] [facility] Last Admin: 09/11/18 07:43 Dose: 0.5 mg Clonidine HCl (Catapres) 0.1 mg PO Q6H PRN PRN Reason: SBP >170 Last Admin: 09/11/18 08:47 Dose: 0.1 mg Sodium Chloride (Sodium Chloride 0.9%) 1,000 mls @ 70 mls/hr IV .[id number] [facility] Last Admin: 09/11/18 06:48 Dose: 70 mls/hr Ceftriaxone Sodium (Rocephin 1 Gram Ivpb) 1 gm in 100 mls @ 100 mls/hr IVPB DAILY [facility]; Protocol Last Admin: 09/11/18 09:54 Dose: 100 mls/hr Metronidazole (Flagyl) 500 mg in 100 mls @ 100 mls/hr IVPB Q8 [facility]; Protocol Last Admin: 09/11/18 06:50 Dose: 100 mls/hr Levalbuterol HCl (Xopenex) 1.25 mg IH Q4H PRN PRN Reason: Shortness of Breath Last Admin: 09/11/18 07:43 Dose: 1.25 mg Metoprolol Tartrate (Lopressor) 25 mg PO BRKDIN [facility] Morphine Sulfate (Morphine) 2 mg IVP Q4H PRN PRN Reason: Pain, moderate (4-7) Nicotine (Nicoderm Cq) 1 patch TD DAILY [facility] Ondansetron HCl (Zofran Inj) 4 mg IVP Q6H PRN PRN Reason: Nausea/Vomiting Last Admin: 09/11/18 10:06 Dose: 4 mg Physical Exam - Constitutional Appears: Non-toxic, No Acute Distress - Eye Exam Eye Exam: EOMI, PERRL - ENT Exam ENT Exam: Mucous Membranes Moist - Respiratory Exam Respiratory Exam: Clear to Auscultation Bilateral. absent: Rales, Rhonchi, Whee zes - Cardiovascular Exam Cardiovascular Exam: RRR, +S1, +S2 - GI/Abdominal Exam GI & Abdominal Exam: Normal Bowel Sounds, Soft. absent: Distended, Firm, Guarding, Organomegaly, Rigid, Tenderness - Extremities Exam Extremities exam: Positive for: normal inspection. Negative for: pedal edema - Neurological Exam Neurological exam: Alert, Oriented x3 - Psychiatric Exam Psychiatric exam: Normal Affect, Normal Mood - Skin Skin Exam: Dry, Warm Results - Vital Signs Recent Vital Signs: Last Vital Signs Temp 101.3 F H 09/11/18 08:26 Pulse 108 H 09/11/18 08:47 Resp 20 09/11/18 08:26 BP 171/82 H 09/11/18 08:47 Pulse Ox 95 09/11/18 08:26 - Labs Result Diagrams: 09/11/18 09:50 09/11/18 09:50 Labs: Laboratory Results - last 24 hr 09/10/18 09/10/18 09/10/18 23:12 23:12 23:58 WBC 19.8 H RBC 5.46 Hgb 17.3 H Hct 50.9 H MCV 93.2 MCH 31.7 MCHC 34.0 RDW 14.2 Plt Count 265 MPV 10.3 Neut % (Auto) 90.9 H Lymph % (Auto) 6.8 L [place] % (Auto) 2.2 Eos % (Auto) 0.0 L Baso % (Auto) 0.1 Lymph # (Auto) 1.3 [place] # (Auto) 0.4 Eos # (Auto) 0.0 Baso # (Auto) 0.02 Absolute Neuts (auto) 18.05 H Neutrophils % (Manual) 92 H Band Neutrophils % 1 Lymphocytes % (Manual) 5 L Monocytes % (Manual) 2 Platelet Evaluation Normal pO2 82 H VBG pH 7.44 H VBG pCO2 37.0 L VBG HCO3 25.1 VBG Total CO2 26.2 VBG O2 Sat (Calc) 98.0 H VBG Base Excess 1.1 VBG Potassium 3.9 Glucose 179 H Lactate 3.6 H FiO2 21.0 Crit Value Called To Felicity Crit Value Called By Blood Gas Notified Time 30 Sodium 142 142.0 Potassium 3.9 Chloride 103 101.0 Carbon Dioxide 25 Anion Gap 19 BUN 11 Creatinine 0.6 L Est GFR ( Amer) > 60 Est GFR (Non-Af Amer) > 60 Random Glucose 184 H Calcium 10.4 Total Bilirubin 0.5 AST 34 ALT 15 Alkaline Phosphatase 110 Total Protein 9.0 H Albumin 5.1 H Globulin 3.9 Albumin/Globulin Ratio 1.3 Lipase 53 Venous Blood Potassium 3.9 Urine Color Urine Appearance Urine pH Ur Specific [place] Urine Protein Urine Glucose (UA) Urine Ketones Urine Blood Urine Nitrate Urine Bilirubin Urine Urobilinogen Ur Leukocyte Esterase Urine RBC Urine WBC Ur Epithelial Cells Urine Bacteria 09/11/18 09/11/18 09/11/18 02:01 04:01 09:50 WBC 26.2 H* D RBC 4.88 Hgb 15.5 Hct 45.3 MCV 92.8 MCH 31.8 MCHC 34.2 RDW 14.2 Plt Count 240 MPV 10.2 Neut % (Auto) Lymph % (Auto) [place] % (Auto) Eos % (Auto) Baso % (Auto) Lymph # (Auto) [place] # (Auto) Eos # (Auto) Baso # (Auto) Absolute Neuts (auto) Neutrophils % (Manual) Band Neutrophils % Lymphocytes % (Manual) Monocytes % (Manual) Platelet Evaluation pO2 44 VBG pH 7.43 VBG pCO2 41.0 VBG HCO3 27.2 VBG Total CO2 28.5 H VBG O2 Sat (Calc) 82.8 H VBG Base Excess 2.6 H VBG Potassium 4.1 Glucose 151 H Lactate 1.9 FiO2 21.0 Crit Value Called To Crit Value Called By Blood Gas Notified Time Sodium 140.0 Potassium Chloride 102.0 Carbon Dioxide Anion Gap BUN Creatinine Est GFR ( Amer) Est GFR (Non-Af Amer) Random Glucose Calcium Total Bilirubin AST ALT Alkaline Phosphatase Total Protein Albumin Globulin Albumin/Globulin Ratio Lipase Venous Blood Potassium 4.1 Urine Color Yellow Urine Appearance Clear Urine pH 7.0 Ur Specific [place] 1.010 Urine Protein Trace H Urine Glucose (UA) 250 H Urine Ketones Negative Urine Blood Moderate H Urine Nitrate Negative Urine Bilirubin Negative Urine Urobilinogen 0.2 Ur Leukocyte Esterase Negative Urine RBC 2 - 5 H Urine WBC 0 - 2 Ur Epithelial Cells 0 - 2 Urine Bacteria None 09/11/18 09:50 WBC RBC Hgb Hct MCV MCH MCHC RDW Plt Count MPV Neut % (Auto) Lymph % (Auto) [place] % (Auto) Eos % (Auto) Baso % (Auto) Lymph # (Auto) [place] # (Auto) Eos # (Auto) Baso # (Auto) Absolute Neuts (auto) Neutrophils % (Manual) Band Neutrophils % Lymphocytes % (Manual) Monocytes % (Manual) Platelet Evaluation pO2 VBG pH VBG pCO2 VBG HCO3 VBG Total CO2 VBG O2 Sat (Calc) VBG Base Excess VBG Potassium Glucose Lactate FiO2 Crit Value Called To Crit Value Called By Blood Gas Notified Time Sodium 139 Potassium 3.3 L Chloride 102 Carbon Dioxide 26 Anion Gap 14 BUN 9 Creatinine 0.5 L Est GFR ( Amer) > 60 Est GFR (Non-Af Amer) > 60 Random Glucose 173 H Calcium 9.4 Total Bilirubin 0.4 AST 28 ALT 13 Alkaline Phosphatase 78 Total Protein 7.4 Albumin 4.2 Globulin 3.2 Albumin/Globulin Ratio 1.3 Lipase Venous Blood Potassium Urine Color Urine Appearance Urine pH Ur Specific [place] Urine Protein Urine Glucose (UA) Urine Ketones Urine Blood Urine Nitrate Urine Bilirubin Urine Urobilinogen Ur Leukocyte Esterase Urine RBC Urine WBC Ur Epithelial Cells Urine Bacteria Assessment & Plan - Assessment and Plan (Free Text) Assessment: Patient is a 63yo female with PMHx significant for COPD, chronic back pain, anxiety, dyslipidemia, idiopathic gastroparesis (per pt), polycythemia vera (per pt) who presented with one day of abdominal pain -Acute abdominal pain, resolved Plan: -CT reviewed - slight compression of renal vein noted in the sagittal view - 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; microscopic hematuria noted -Presume acute infectious enteritis given CT imaging and significant leukocytosis -Abdominal pain resolved presently -Supportive care -Diet as tolerated -No plan for endoscopic evaluation presently -Encourage outpatient follow up for initial screening colonoscopy - Date & Time Date: 09/11/18 Time: 07:45 <Eladio Simms V - Last Filed: 09/11/18 20:04> Meds - Medications Medications: Current Medications Acetaminophen (Tylenol 325mg Tab) 650 mg PO Q6H PRN PRN Reason: fever 101.4 Arformoterol Tartrate (Brovana) 15 mcg IH [id number] [facility] Last Admin: 09/11/18 07:42 Dose: 15 mcg Budesonide (Pulmicort Respules) 0.5 mg IH [id number] [facility] Last Admin: 09/11/18 07:43 Dose: 0.5 mg Ceftriaxone Sodium (Rocephin 1 Gram Ivpb) 1 gm in 100 mls @ 100 mls/hr IVPB DAILY [facility]; Protocol Last Admin: 09/11/18 09:54 Dose: 100 mls/hr Metronidazole (Flagyl) 500 mg in 100 mls @ 100 mls/hr IVPB Q8 [facility]; Protocol Last Admin: 09/11/18 14:15 Dose: 100 mls/hr Sodium Chloride (Sodium Chloride 0.9%) 1,000 mls @ 100 mls/hr IV .Q10H [facility] Last Admin: 09/11/18 19:12 Dose: 100 mls/hr Levalbuterol HCl (Xopenex) 1.25 mg IH Q4H PRN PRN Reason: Shortness of Breath Last Admin: 09/11/18 07:43 Dose: 1.25 mg Morphine Sulfate (Morphine) 2 mg IVP Q4H PRN PRN Reason: Pain, moderate (4-7) Last Admin: 09/11/18 14:16 Dose: 2 mg Nicotine (Nicoderm Cq) 1 patch TD DAILY [facility] Last Admin: 09/11/18 14:16 Dose: Not Given Ondansetron HCl (Zofran Inj) 4 mg IVP Q6H PRN PRN Reason: Nausea/Vomiting Last Admin: 09/11/18 10:06 Dose: 4 mg Results - Vital Signs Recent Vital Signs: Last Vital Signs Temp 98.7 F 09/11/18 17:18 Pulse 87 09/11/18 18:00 Resp 16 09/11/18 17:18 BP 94/53 L 09/11/18 17:18 Pulse Ox 95 09/11/18 17:18 - Labs Result Diagrams: 09/11/18 09:50 09/11/18 09:50 Labs: Laboratory Results - last 24 hr 09/10/18 09/10/18 09/10/18 23:12 23:12 23:58 WBC 19.8 H RBC 5.46 Hgb 17.3 H Hct 50.9 H MCV 93.2 MCH 31.7 MCHC 34.0 RDW 14.2 Plt Count 265 MPV 10.3 Neut % (Auto) 90.9 H Lymph % (Auto) 6.8 L [place] % (Auto) 2.2 Eos % (Auto) 0.0 L Baso % (Auto) 0.1 Lymph # (Auto) 1.3 [place] # (Auto) 0.4 Eos # (Auto) 0.0 Baso # (Auto) 0.02 Absolute Neuts (auto) 18.05 H Neutrophils % (Manual) 92 H Band Neutrophils % 1 Lymphocytes % (Manual) 5 L Monocytes % (Manual) 2 Platelet Evaluation Normal pO2 82 H VBG pH 7.44 H VBG pCO2 37.0 L VBG HCO3 25.1 VBG Total CO2 26.2 VBG O2 Sat (Calc) 98.0 H VBG Base Excess 1.1 VBG Potassium 3.9 Glucose 179 H Lactate 3.6 H FiO2 21.0 Crit Value Called To Felicity Crit Value Called By Blood Gas Notified Time 30 Sodium 142 142.0 Potassium 3.9 Chloride 103 101.0 Carbon Dioxide 25 Anion Gap 19 BUN 11 Creatinine 0.6 L Est GFR ( Amer) > 60 Est GFR (Non-Af Amer) > 60 Random Glucose 184 H Calcium 10.4 Total Bilirubin 0.5 AST 34 ALT 15 Alkaline Phosphatase 110 Total Protein 9.0 H Albumin 5.1 H Globulin 3.9 Albumin/Globulin Ratio 1.3 Lipase 53 Venous Blood Potassium 3.9 Urine Color Urine Appearance Urine pH Ur Specific [place] Urine Protein Urine Glucose (UA) Urine Ketones Urine Blood Urine Nitrate Urine Bilirubin Urine Urobilinogen Ur Leukocyte Esterase Urine RBC Urine WBC Ur Epithelial Cells Urine Bacteria 09/11/18 09/11/18 09/11/18 02:01 04:01 09:50 WBC 26.2 H* D RBC 4.88 Hgb 15.5 Hct 45.3 MCV 92.8 MCH 31.8 MCHC 34.2 RDW 14.2 Plt Count 240 MPV 10.2 Neut % (Auto) Lymph % (Auto) [place] % (Auto) Eos % (Auto) Baso % (Auto) Lymph # (Auto) [place] # (Auto) Eos # (Auto) Baso # (Auto) Absolute Neuts (auto) Neutrophils % (Manual) Band Neutrophils % Lymphocytes % (Manual) Monocytes % (Manual) Platelet Evaluation pO2 44 VBG pH 7.43 VBG pCO2 41.0 VBG HCO3 27.2 VBG Total CO2 28.5 H VBG O2 Sat (Calc) 82.8 H VBG Base Excess 2.6 H VBG Potassium 4.1 Glucose 151 H Lactate 1.9 FiO2 21.0 Crit Value Called To Crit Value Called By Blood Gas Notified Time Sodium 140.0 Potassium Chloride 102.0 Carbon Dioxide Anion Gap BUN Creatinine Est GFR ( Amer) Est GFR (Non-Af Amer) Random Glucose Calcium Total Bilirubin AST ALT Alkaline Phosphatase Total Protein Albumin Globulin Albumin/Globulin Ratio Lipase Venous Blood Potassium 4.1 Urine Color Yellow Urine Appearance Clear Urine pH 7.0 Ur Specific [place] 1.010 Urine Protein Trace H Urine Glucose (UA) 250 H Urine Ketones Negative Urine Blood Moderate H Urine Nitrate Negative Urine Bilirubin Negative Urine Urobilinogen 0.2 Ur Leukocyte Esterase Negative Urine RBC 2 - 5 H Urine WBC 0 - 2 Ur Epithelial Cells 0 - 2 Urine Bacteria None 09/11/18 09:50 WBC RBC Hgb Hct MCV MCH MCHC RDW Plt Count MPV Neut % (Auto) Lymph % (Auto) [place] % (Auto) Eos % (Auto) Baso % (Auto) Lymph # (Auto) [place] # (Auto) Eos # (Auto) Baso # (Auto) Absolute Neuts (auto) Neutrophils % (Manual) Band Neutrophils % Lymphocytes % (Manual) Monocytes % (Manual) Platelet Evaluation pO2 VBG pH VBG pCO2 VBG HCO3 VBG Total CO2 VBG O2 Sat (Calc) VBG Base Excess VBG Potassium Glucose Lactate FiO2 Crit Value Called To Crit Value Called By Blood Gas Notified Time Sodium 139 Potassium 3.3 L Chloride 102 Carbon Dioxide 26 Anion Gap 14 BUN 9 Creatinine 0.5 L Est GFR ( Amer) > 60 Est GFR (Non-Af Amer) > 60 Random Glucose 173 H Calcium 9.4 Total Bilirubin 0.4 AST 28 ALT 13 Alkaline Phosphatase 78 Total Protein 7.4 Albumin 4.2 Globulin 3.2 Albumin/Globulin Ratio 1.3 Lipase Venous Blood Potassium Urine Color Urine Appearance Urine pH Ur Specific [place] Urine Protein Urine Glucose (UA) Urine Ketones Urine Blood Urine Nitrate Urine Bilirubin Urine Urobilinogen Ur Leukocyte Esterase Urine RBC Urine WBC Ur Epithelial Cells Urine Bacteria Attending/Attestation - Attestation I have personally seen and examined this patient.: Yes I have fully participated in the care of the patient.: Yes I have reviewed all pertinent clinical information: Yes Notes (Text): This is an addendum to the GI consultation report dictated by the fellow. The patient was seen and evaluated along with the GI fellow. CT scan was reviewed. Patient is admitted with abdominal pain leukocytosis episodes of diarrhea. Prominence of the small bowel loops noticed. Possibility of enteritis to be considered. Follow-up Would recommend 1. Follow-up cultures 2. Continue the antibiotics 3. Clear liquid diet 4. Ultrasound of the abdomen. Review of the previous sonogram showed a dilated CBD Thank you Dr. Javier for allowing us to participate in the care of the patient. We will continue to closely follow-up out of care and suggest further r ecommendations based on the clinical course 09/11/18 20:01
--- NOTE | 2018-09-11 11:16 | RAD ---
Date of service: 09/11/2018 PROCEDURE: CHEST RADIOGRAPH, 1 VIEW HISTORY: sepsis COMPARISON: 11/15/2012 she is Chaitanya CREST FINDINGS: LUNGS: Clear. PLEURA: No pneumothorax or pleural fluid seen. CARDIOVASCULAR: No aortic atherosclerotic calcification present. Normal. OSSEOUS STRUCTURES: No significant abnormalities. VISUALIZED UPPER ABDOMEN: Normal. OTHER FINDINGS: None. IMPRESSION: No active disease.
[2018-09-11] MEDS: Morphine 2 mg/ml ISec IVP PRN ×2 (14:16→20:00)
--- NOTE | 2018-09-11 18:19 | CT ---
Date of service: 09/11/2018 PROCEDURE: CT Chest without contrast HISTORY: high WBC COMPARISON: None available. TECHNIQUE: Contiguous axial images were obtained through the chest without intravenous contrast enhancement. Sagittal and coronal reconstructions were performed. Radiation dose: Total exam DLP = 165.21 mGy-cm. This CT exam was performed using one or more of the following dose reduction techniques: Automated exposure control, adjustment of the mA and/or kV according to patient size, and/or use of iterative reconstruction technique. FINDINGS: LUNGS: Hyperinflation, manifestations of COPD. No active pulmonary disease. Parabronchial thickening a tests to lower airway disease/bronchitis. No evidence of mucous plugging. MEDIASTINUM: Unremarkable thoracic aorta. No aneurysm. Normal sized heart. Main pulmonary artery unremarkable. No vascular congestion. No lymphadenopathy. No aortic atherosclerotic calcification. PLEURA: No pleural fluid. No pneumothorax. BONES: No fracture. No destructive lesion. UPPER ABDOMEN: Grossly unremarkable. OTHER FINDINGS: None. IMPRESSION: No active pulmonary disease. No pulmonary masses or infiltrates identified. Hyperinflation/manifestations of COPD with bronchitic change.
[2018-09-11] MEDS ORDERED: Potassium Chloride 20 mEq ER Tab PO ONE (20:20)
--- NOTE | 2018-09-11 23:15 | CP.PCM.PN ---
<Delmar Pantoja - Last Filed: 09/11/18 23:15> Subjective - Date & Time of Evaluation Date of Evaluation: 09/11/18 Time of Evaluation: 23:08 - Subjective Subjective: Patient had one episode of 3.52 seconds of sinus pause. Patient is currently asymptomatic. She denies headaches, dizziness, shortness of breath, chest pain, diaphoresis, palpitations, or any other complaints at this time. VSS Gen: NAD, AAO X 3 Lungs: CTA b/l Cardiac: RRR, normal S1, S2. No murmurs Abd: Soft, Non-tender, normal bowel sounds Ext: No edema Plan: - Patient is asymptomatic - Consider cardiology consultation - Will monitor closely Discussed with house attending, Dr. Ventura. Delmar Pantoja, PGY-1 Objective - Vital Signs/Intake and Output Vital Signs (last 24 hours): Temp Pulse Resp BP Pulse Ox 98.7 F 87 16 94/53 L 95 09/11/18 17:18 09/11/18 18:00 09/11/18 17:18 09/11/18 17:18 09/11/18 17:18 Intake and Output: 09/11/18 09/12/18 18:59 06:59 Intake Total 840 Balance 840 - Medications Medications: Current Medications Acetaminophen (Tylenol 325mg Tab) 650 mg PO Q6H PRN PRN Reason: fever 101.4 Arformoterol Tartrate (Brovana) 15 mcg IH [id number] [facility] Last Admin: 09/11/18 20:05 Dose: 15 mcg Budesonide (Pulmicort Respules) 0.5 mg IH [id number] [facility] Last Admin: 09/11/18 20:05 Dose: 0.5 mg Ceftriaxone Sodium (Rocephin 1 Gram Ivpb) 1 gm in 100 mls @ 100 mls/hr IVPB DAILY [facility]; Protocol Last Admin: 09/11/18 09:54 Dose: 100 mls/hr Metronidazole (Flagyl) 500 mg in 100 mls @ 100 mls/hr IVPB Q8 [facility]; Protocol Last Admin: 09/11/18 21:18 Dose: 100 mls/hr Sodium Chloride (Sodium Chloride 0.9%) 1,000 mls @ 100 mls/hr IV .Q10H [facility]RE[facility] Last Admin: 09/11/18 19:12 Dose: 100 mls/hr Levalbuterol HCl (Xopenex) 1.25 mg IH Q4H PRN PRN Reason: Shortness of Breath Last Admin: 09/11/18 07:43 Dose: 1.25 mg Morphine Sulfate (Morphine) 2 mg IVP Q4H PRN PRN Reason: Pain, moderate (4-7) Last Admin: 09/11/18 20:00 Dose: 2 mg Nicotine (Nicoderm Cq) 1 patch TD DAILY [facility] Last Admin: 09/11/18 14:16 Dose: Not Given Ondansetron HCl (Zofran Inj) 4 mg IVP Q6H PRN PRN Reason: Nausea/Vomiting Last Admin: 09/11/18 10:06 Dose: 4 mg - Labs Labs: 09/11/18 09:50 09/11/18 09:50 <Linda Ventura - Last Filed: 09/12/18 07:19> Objective - Vital Signs/Intake and Output Vital Signs (last 24 hours): Temp Pulse Resp BP Pulse Ox 98.7 F 100 H 16 94/53 L 95 09/11/18 17:18 09/12/18 05:30 09/11/18 17:18 09/11/18 17:18 09/11/18 17:18 Intake and Output: 09/12/18 09/12/18 06:59 18:59 Intake Total 1080 Balance 1080 - Medications Medications: Current Medications Acetaminophen (Tylenol 325mg Tab) 650 mg PO Q6H PRN PRN Reason: fever 101.4 Arformoterol Tartrate (Brovana) 15 mcg IH [id number] [facility] Last Admin: 09/11/18 20:05 Dose: 15 mcg Budesonide (Pulmicort Respules) 0.5 mg IH [id number] [facility] Last Admin: 09/11/18 20:05 Dose: 0.5 mg Ceftriaxone Sodium (Rocephin 1 Gram Ivpb) 1 gm in 100 mls @ 100 mls/hr IVPB DAILY [facility]; Protocol Last Admin: 09/11/18 09:54 Dose: 100 mls/hr Metronidazole (Flagyl) 500 mg in 100 mls @ 100 mls/hr IVPB Q8 [facility]; Protocol Last Admin: 09/12/18 05:37 Dose: 100 mls/hr Sodium Chloride (Sodium Chloride 0.9%) 1,000 mls @ 100 mls/hr IV .Q10H [facility] Last Admin: 09/11/18 19:12 Dose: 100 mls/hr Levalbuterol HCl (Xopenex) 1.25 mg IH Q4H PRN PRN Reason: Shortness of Breath Last Admin: 09/11/18 07:43 Dose: 1.25 mg Morphine Sulfate (Morphine) 2 mg IVP Q4H PRN PRN Reason: Pain, moderate (4-7) Last Admin: 09/12/18 01:50 Dose: 2 mg Nicotine (Nicoderm Cq) 1 patch TD DAILY [facility] Last Admin: 09/11/18 14:16 Dose: Not Given Ondansetron HCl (Zofran Inj) 4 mg IVP Q6H PRN PRN Reason: Nausea/Vomiting Last Admin: 09/12/18 02:06 Dose: 4 mg - Labs Labs: 09/12/18 06:00 09/11/18 09:50 Attending/Attestation - Attestation I have personally seen and examined this patient.: No I have fully participated in the care of the patient.: No I have reviewed all pertinent clinical information, including history, physical exam and plan: No
[2018-09-12] MEDS: Morphine 2 mg/ml ISec IVP PRN ×4 (01:50→23:08)
[2018-09-12] MEDS: metroNIDAZOLE IV 500 mg/100 ml 500 MG/100 ML BAG IVPB SCH ×3 (05:37→21:45)
--- NOTE | 2018-09-12 05:55 | CON ---
DATE: 09/11/2018 The patient was seen earlier this morning in room 365, bed 2. CHIEF COMPLAINT: Abdominal pain. The patient also had diarrhea, nausea, and vomiting x1 day duration. HISTORY OF PRESENT ILLNESS: This is a 62-year-old female with past medical history significant for chronic back pain, chronic obstructive lung disease, and continues to smoke, although she says she stopped few days ago, who has no travel, no pets, and was not any antibiotics, admitted with nausea, vomiting, diarrhea. PAST MEDICAL HISTORY: Significant for chronic back pain and COPD. REVIEW OF SYSTEMS: A 12-point review of systems is performed. PAST SURGICAL HISTORY: For tonsillectomy. ALLERGIES: THE PATIENT HAS NO KNOWN ALLERGIES. MEDICATIONS AT HOME: Include Spiriva HandiHaler. PHYSICAL EXAMINATION: GENERAL: The patient is in bed, in no acute distress. She appears chronically ill, debilitated, cachectic with a temperature of 101.3 and heart rate of 104, blood pressure is 94/50 and respiratory rate of 20. Examination of HEENT is unremarkable. NECK: Supple. LUNGS: Have decreased breath sounds. HEART: Normal S1, S2. ABDOMEN: Soft, nontender. No rebound or guarding. LABORATORY EXAMINATION: Reveals a white count of 19,800; hemoglobin of 17; platelets of 265. Chemistries are noted and urinalysis is reviewed. Microbiology is pending. The patient had a CAT scan of the chest, which is ordered by Dr. Javier, which shows no active pulmonary disease, no infiltrates, hyperinflated chronic obstructive lung disease. The patient also had a CAT scan of the abdomen and pelvis, which was unremarkable. The patient had a chest x-ray. Chest x-ray is clear. ASSESSMENT AND PLAN: This is a 63-year-old female with chronic obstructive lung disease, chronic back pain, nausea, vomiting, diarrhea, abdominal cramps, and temperature of 101. 1. Sepsis with gastroenteritis. We will treat with Flagyl and ceftriaxone and pending blood cultures and stool cultures and stool for C. difficile, although the patient was not on any antibiotics. We will also order an HIV test because of her age of 63. We will make further recommendations upon availability of initial results. Gucci Piña MD
[2018-09-12 07:07] LABS: HEMOGLOBIN 15.1 g/dL (12.0-16.0); MEAN CELL VOLUME 93.3 fl (80.0-105.0); MEAN CORPUSCULAR HEMOGLOBIN 30.9 pg (25.0-35.0); MEAN CORPUSCULAR HGB CONC 33.1 g/dl (31.0-37.0); MEAN PLATELET VOLUME 10.6 fl (7.0-11.0); RBC 4.89 10^6/uL (3.5-6.1); RED CELL DISTRIBUTION WIDTH 14.5 % (11.5-14.5)
[2018-09-12 07:44] LABS: ALB/GLOB RATIO 1.3 (1.1-1.8); ALBUMIN 4.1 g/dL (3.0-4.8); ALT/SGPT 23 U/L (7-56); AST/SGOT 42 U/L (14-36); BLOOD UREA NITROGEN 10 mg/dL (7-21); CALCIUM 8.9 mg/dL (8.4-10.5); GFR NON-AFRICAN AMERICAN > 60
[2018-09-12] MEDS: Arformoterol 15 mcg/2 ml Inh Sol IH SCH (07:50)
[2018-09-12] MEDS: Budesonide 0.5 mg/2 ml Inhal Susp UD IH SCH (07:50)
[2018-09-12] MEDS: cefTRIAXone 1 gm 1 GM/100 ML BAG IVPB SCH (09:48)
--- NOTE | 2018-09-12 10:11 | CP.PCM.PN ---
<Vernon Omer - Last Filed: 09/12/18 10:08> Subjective - Date & Time of Evaluation Date of Evaluation: 09/12/18 Time of Evaluation: 07:40 - Subjective Subjective: PGY6 GI Fellow Progress Note Patient seen and examined bedside this morning. The patient states she is now having more significant loose watery stool. Also, had worsening abdominal pain last night with cramping after eating Syriac noodles that a friend brought for her despite being told to maintain a liquid diet. Nausea and vomiting this morning per patient. 12 system ROS performed and negative except where stated Objective - Vital Signs/Intake and Output Vital Signs (last 24 hours): Temp Pulse Resp BP Pulse Ox 98.2 F 101 H 20 188/94 H 97 09/12/18 08:33 09/12/18 09:41 09/12/18 08:33 09/12/18 09:41 09/12/18 08:33 Intake and Output: 09/12/18 09/12/18 06:59 18:59 Intake Total 1080 Balance 1080 - Medications Medications: Current Medications Acetaminophen (Tylenol 325mg Tab) 650 mg PO Q6H PRN PRN Reason: fever 101.4 Arformoterol Tartrate (Brovana) 15 mcg IH [id number] [facility] Last Admin: 09/12/18 07:50 Dose: Not Given Budesonide (Pulmicort Respules) 0.5 mg IH [id number] [facility]REW Last Admin: 09/12/18 07:50 Dose: Not Given Ceftriaxone Sodium (Rocephin 1 Gram Ivpb) 1 gm in 100 mls @ 100 mls/hr IVPB DAILY [facility]; Protocol Last Admin: 09/12/18 09:48 Dose: 100 mls/hr Metronidazole (Flagyl) 500 mg in 100 mls @ 100 mls/hr IVPB Q8 [facility]; Protocol Last Admin: 09/12/18 05:37 Dose: 100 mls/hr Sodium Chloride (Sodium Chloride 0.9%) 1,000 mls @ 100 mls/hr IV .Q10H [facility] Last Admin: 09/11/18 19:12 Dose: 100 mls/hr Levalbuterol HCl (Xopenex) 1.25 mg IH Q4H PRN PRN Reason: Shortness of Breath Last Admin: 09/11/18 07:43 Dose: 1.25 mg Lisinopril (Zestril) 5 mg PO DAILY [facility] Last Admin: 09/12/18 09:41 Dose: 5 mg Morphine Sulfate (Morphine) 2 mg IVP Q4H PRN PRN Reason: Pain, moderate (4-7) Last Admin: 09/12/18 09:49 Dose: 2 mg Nicotine (Nicoderm Cq) 1 patch TD DAILY [facility] Last Admin: 09/12/18 09:48 Dose: Not Given Ondansetron HCl (Zofran Inj) 4 mg IVP Q6H PRN PRN Reason: Nausea/Vomiting Last Admin: 09/12/18 08:22 Dose: 4 mg - Labs Labs: 09/12/18 06:00 09/12/18 06:00 - Constitutional Appears: Non-toxic, No Acute Distress, Older Than Stated Age - Eye Exam Eye Exam: EOMI, PERRL - ENT Exam ENT Exam: Mucous Membranes Moist - Respiratory Exam Respiratory Exam: Clear to Ausculation Bilateral. absent: Rales, Rhonchi, Wheezes - Cardiovascular Exam Cardiovascular Exam: RRR, +S1, +S2 - GI/Abdominal Exam GI & Abdominal Exam: Soft, Tenderness (diffuse, mild), Normal Bowel Sounds. absent: Distended, Firm, Guarding, Rigid, Organomegaly - Extremities Exam Extremities Exam: Normal Inspection. absent: Pedal Edema - Neurological Exam Neurological Exam: Alert, Awake, Oriented x3 - Psychiatric Exam Psychiatric exam: Anxious - Skin Skin Exam: Dry, Warm Assessment and Plan - Assessment and Plan (Free Text) Assessment: Patient is a 63yo female with PMHx significant for COPD, chronic back pain, anxiety, dyslipidemia, idiopathic gastroparesis (per pt), polycythemia vera (per pt) who presented with one day of abdominal pain -Acute abdominal pain suspect acute enteritis -Dilated CBD on U/S Plan: -Suspect acute enteritis given leukocytosis, diarrhea/pain/nausea/vomiting -Scale diet back to clear liquids and again stress avoidance of solid food for now -Ongoing supportive care -On Ceftriaxone/Flagyl IV -Stool infectious work up ordered -Monitor clinical course -U/S reviewed - H/O dilated CBD which is again demonstrated at 1cm - MRI with MRCP when clinically improved -Encourage outpatient follow up for initial screening colonoscopy <Eladio Simms V - Last Filed: 09/14/18 20:02> Objective - Vital Signs/Intake and Output Vital Signs (last 24 hours): Temp Pulse Resp BP Pulse Ox 98.6 F 92 H 20 138/81 96 09/12/18 16:26 09/12/18 18:00 09/12/18 16:26 09/12/18 16:26 09/12/18 16:26 - Medications Medications: Current Medications Acetaminophen (Tylenol 325mg Tab) 650 mg PO Q6H PRN PRN Reason: fever 101.4 Arformoterol Tartrate (Brovana) 15 mcg IH [id number] [facility] Last Admin: 09/12/18 07:50 Dose: Not Given Budesonide (Pulmicort Respules) 0.5 mg IH [id number] [facility] Last Admin: 09/12/18 07:50 Dose: Not Given Hydralazine HCl (Apresoline) 10 mg IVP Q6 PRN PRN Reason: Systolic Blood Pressure Ceftriaxone Sodium (Rocephin 1 Gram Ivpb) 1 gm in 100 mls @ 100 mls/hr IVPB DAILY [facility]; Protocol Last Admin: 09/12/18 09:48 Dose: 100 mls/hr Metronidazole (Flagyl) 500 mg in 100 mls @ 100 mls/hr IVPB Q8 [facility]; Protocol Last Admin: 09/12/18 21:45 Dose: Not Given Levalbuterol HCl (Xopenex) 1.25 mg IH Q4H PRN PRN Reason: Shortness of Breath Last Admin: 09/11/18 07:43 Dose: 1.25 mg Lisinopril (Zestril) 5 mg PO DAILY [facility] Last Admin: 09/12/18 09:41 Dose: 5 mg Morphine Sulfate (Morphine) 2 mg IVP Q4H PRN PRN Reason: Pain, moderate (4-7) Last Admin: 09/12/18 23:08 Dose: 2 mg Nicotine (Nicoderm Cq) 1 patch TD DAILY [facility] Last Admin: 09/12/18 09:48 Dose: Not Given Ondansetron HCl (Zofran Inj) 4 mg IVP Q6H PRN PRN Reason: Nausea/Vomiting Last Admin: 09/12/18 08:22 Dose: 4 mg Potassium Chloride (Klor-Con 10) 20 meq PO BRK [facility] Last Admin: 09/12/18 12:12 Dose: 20 meq - Labs Labs: 09/12/18 06:00 09/12/18 06:00 Attending/Attestation - Attestation I have personally seen and examined this patient.: Yes I have fully participated in the care of the patient.: Yes I have reviewed all pertinent clinical information, including history, physical exam and plan: Yes Notes (Text): This patient was seen and evaluated along with the GI fellow earlier today. Th is is delayed a #2 the progress note dictated by the fellow. Patient is finally agreeable for MRI of the pancreas with MRCP to further evaluate the dilated common bile duct. Clinically feeling better. Continue the antibiotics The etiology for enteritis unclear 09/12/18 23:58 09/14/18 20:00
--- NOTE | 2018-09-12 11:00 | US ---
Date of service: 09/11/2018 HISTORY: abdominal pain leucocytosis COMPARISON: None. TECHNIQUE: Sonographic evaluation of the abdomen. FINDINGS: LIVER: Measures 13.2 cm. Normal echogenicity of the liver parenchyma. No mass. No intrahepatic bile duct dilatation. GALLBLADDER: Unremarkable. No gallstones. COMMON BILE DUCT: Measures 10.9 mm. No choledocholithiasis appreciable. PANCREAS: Unremarkable as visualized. No mass. No significant ductal dilatation. RIGHT KIDNEY: Measures 9.3cm. Normal echogenicity. No calculus, mass, or hydronephrosis. LEFT KIDNEY: Measures 9.2cm. Normal echogenicity. No calculus, mass, or hydronephrosis. SPLEEN: Normal in size and contour, 9.3 cm greatest dimension. No mass. AORTA: No aneurysmal dilatation. IVC: Unremarkable. OTHER FINDINGS: None. IMPRESSION: 1. Unremarkable appearing liver with normal echogenicity diffusely noted. 2. Dilated proximal common bile duct up to 10.9 mm without choledocholithiasis appreciable. Mid distal CBD obscured by overlying bowel gas. Gallbladder appears unremarkable. Etiology of proximal visualized common bile duct dilatation unclear. Consider follow-up MRCP. 3. The remainder is unremarkable. Discordant preliminary report from [facility] (Impression No. 1), 09/11/2018, 9:13 p.m..
[2018-09-12] MEDS: Potassium Chloride 10 mEq ER Tab PO SCH (12:12)
--- NOTE | 2018-09-12 19:14 | CARD ---
APPROVED REPORT Date of service: 09/12/2018 EKG Measurement Heart [id number] [id number] <Conclusion> Sinus tachycardia Septal infarct, age undetermined Abnormal ECG
--- NOTE | 2018-09-12 20:42 | HP ---
DATE OF EXAM: 09/11/2018 HISTORY OF PRESENT ILLNESS: The patient is a 63-year-old female with a history of COPD and chronic back pain. She currently smoke and she came in because of some abdominal discomfort, abdominal pain associated with nausea, vomiting, and diarrhea for a couple of days. She has no blood in her stool. She has a fever. She has a chills. No other complaint. No specific food intake. PAST MEDICAL HISTORY: As above, COPD, and chronic back pain. PAST SURGICAL HISTORY: Tonsillectomy. ALLERGIES: THE PATIENT HAS NO KNOWN ALLERGY. FAMILY HISTORY: Noncontributory. MEDICATIONS: At home, she takes hand inhaler for COPD and Tylenol for her pain. She also takes albuterol nebulizer machine at home. REVIEW OF SYSTEMS: Significant for the above complaint; otherwise, nothing. PHYSICAL EXAMINATION: VITAL SIGNS: Her temperature 97.8, heart rate 88, blood pressure was running high in the 179/83, respirations 20, and saturation 95% on room air. HEAD AND NECK: Normal. No JVD. No thyromegaly. CHEST: Clear bilaterally. CARDIAC: First sound and second sound normal. No murmur, rub, or gallop. ABDOMEN: Soft, but there is mild tenderness, generalized more upper in the colon area and also left lower quadrant and in the upper abdomen too. Bowel sounds intact. EXTREMITIES: Lower extremity exam normal. NEUROLOGIC: Normal. Generally, the patient does not look in distress. LABORATORY DATA: Shows white count 19.8 which went up to 26.2, hemoglobin 17.3, hematocrit 50.9, and platelet is 265. Her chemistry; sodium 142, potassium 3.9, chloride 103, bicarb 25, BUN 11, creatinine 0.6, and blood sugar 184. Liver function test seems normal. Total protein is 9. Albumin also is 5.1. which is elevated. CT abdomen and pelvis is noted to be negative. IMPRESSION AND PLAN: The patient came in with fever, leukocytosis, abdominal pain, and negative CT probably; 1. Sepsis, etiology gastrointestinal in origin, viral versus bacterial unclear. We will get a blood culture and urine cultures. Put her on IV antibiotic. Infectious Disease consult, Dr. Piña and Gastroenterology consult, Dr. Simms. We will IV fluid. 2. Chronic obstructive pulmonary disease and hypertension. We are going to give clonidine p.r.n. and continue Brovana and Pulmicort plus Xopenex p.r.n. Continue current therapy. Jerson Javier MD
--- NOTE | 2018-09-12 21:28 | CON ---
DATE: 09/12/2018 CONSULT SERVICE: Cardiology. REASON FOR CONSULTATION AND FOLLOWUP: Sinus block, Mobitz type 2 and multiple pause 2.78 and 3.5 seconds. BRIEF CLINICAL HISTORY: This is a 63-year-old female, with active tobacco abuse and history of pulmonary nodule, admitted after having abdominal pain. This morning, the patient was throwing up according to the patient blood-tinged vomitus and keep on vomiting. At that time possibly the patient's heart rate went down, so Cardiology consult was called. The patient denies any prior episode of chest pain. Denies any episode of dizziness or dyspnea on exertion or shortness of breath or dizzy spells or syncope or near syncope in the past. PAST MEDICAL HISTORY: Significant for COPD, chronic back pain, admitted with abdominal pain, possible colitis, and sepsis, history of COPD on taking breathing machine. Denies any prior episode of any documented coronary artery disease. FAMILY HISTORY: The patient is unaware of any significant coronary artery disease in the family. CURRENT MEDICATIONS: The patient at home is taking Spiriva 8 mcg inhalation with a breathing machine, albuterol Duonebulizer treatment. ALLERGY: NO KNOWN DRUG ALLERGY. REVIEW OF SYSTEMS: As per HPI. PHYSICAL EXAMINATION: GENERAL: Height of the patient 5 feet 4 inches, weight of the patient 108 pounds, and body mass index 18.5 kg/m2. VITAL SIGNS: Temperature afebrile, heart rate 95, and blood pressure 185/93. HEENT: PERRLA. Extraocular muscles intact. NECK: Supple. No carotid bruits or thyromegaly. CHEST: Clear to auscultation. HEART: S1 and S2 regular. ABDOMEN: Soft. EXTREMITIES: Clubbing and cyanosis negative. LABORATORY DATA: Blood workup; WBC 16, hemoglobin , hematocrit 45.6, and platelet count 238. Chemistry shows sodium 140, potassium 3.4, chloride 104, carbon dioxide 25, anion gap of 30, BUN 10, and creatinine 0.5. EKG shows normal sinus, no acute ST-T changes noted, but telemetry strips shows long sinus arrest, probably the patient was vomiting as vagal. IMPRESSION: A 63-year-old female, with no significant history except for chronic obstructive pulmonary disease, active tobacco abuse, history of pulmonary nodule, admitted with abdominal pain, worsening diagnoses of colitis and sepsis. Admitted WBC 19, then went to 26.2, but the patient's vomiting and heart rate went down and sinus arrest, rule out sick sinus syndrome, rule out hypothyroidism, and rule out any structural heart disease. RECOMMENDATIONS: We will get echo, lipid profile, TSH, hemoglobin A1c, and Holter monitor. Further recommendations after hospital course. We will monitor closely. Most likely, this episode of bradycardia secondary to vagal, but rule out sick sinus syndrome; rule out tachybrady syndrome. We will follow with you. Also, we will send sed rate and we will do the Lyme titer. Thank you Dr. Javier for providing us the opportunity in taking care of the patient, Marsha Guan. Xochitl Oden MD
--- NOTE | 2018-09-13 01:07 | PN ---
DATE: 09/12/2018 SUBJECTIVE: The patient is in bed, in no acute distress. She was seen early this morning. She is still having diarrhea and abdominal discomfort, although it is somewhat improved and her fever is improved. PHYSICAL EXAMINATION VITAL SIGNS: Temperature is 98, T-max yesterday was 101, blood pressure is 130/80, respiratory rate 20, heart rate of 105. HEENT: Unremarkable. NECK: Supple. LUNGS: Have decreased breath sounds. HEART: Normal S1, S2. ABDOMEN: Soft, nontender. LABORATORY DATA: Reveals a white count of 16,000 and hemoglobin of 15, BUN of 10, creatinine of 0.5. Urinalysis is noted. Microbiology reveals the blood cultures are negative. REVIEW OF ORDERS: Reveals that HIV is pending and stool cultures are pending. Stool cultures were not collected, we will reorder them. ASSESSMENT AND PLAN: A 63-year-old female who is admitted with sepsis with gastroenteritis on Flagyl, ceftriaxone. Stool cultures pending. The patient had an ultrasound of the abdomen. Mild distal common bile duct obscured by overlying gas. We will follow with you. Gucci Piña MD (Delete this signature block when dictator is a preceptor.) cc: MD Noé (Delete if not dictated.)
[2018-09-13] MEDS: Morphine 2 mg/ml ISec IVP PRN ×4 (05:11→20:21)
[2018-09-13] MEDS: metroNIDAZOLE IV 500 mg/100 ml 500 MG/100 ML BAG IVPB SCH ×2 (05:35→14:20)
[2018-09-13 06:46] LABS: BASO # 0.03 K/mm3 (0.0-2.0); BASO % 0.2 % (0.0-3.0); EOS % 0.1 % (1.5-5.0); LYMPH # 2.5 (1.2-3.4); LYMPH % 16.4 % (22.0-35.0); MEAN CELL VOLUME 91.1 fl (80.0-105.0); MEAN CORPUSCULAR HEMOGLOBIN 31.3 pg (25.0-35.0); MEAN CORPUSCULAR HGB CONC 34.4 g/dl (31.0-37.0); MEAN PLATELET VOLUME 10.4 fl (7.0-11.0); MONO # 1.2 (0.1-0.6); RBC 5.52 10^6/uL (3.5-6.1); RED CELL DISTRIBUTION WIDTH 13.6 % (11.5-14.5); WHITE BLOOD COUNT 15.2 10^3/uL (4.5-11.0)
[2018-09-13 06:48] LABS: HEMOGLOBIN 17.3 g/dL (12.0-16.0)
[2018-09-13 07:03] LABS: ALB/GLOB RATIO 1.3 (1.1-1.8); ALBUMIN 4.2 g/dL (3.0-4.8); ALT/SGPT 19 U/L (7-56); AST/SGOT 36 U/L (14-36); BLOOD UREA NITROGEN 9 mg/dL (7-21); CALCIUM 9.2 mg/dL (8.4-10.5); GFR NON-AFRICAN AMERICAN > 60; HDL CHOLESTEROL 68 mg/dL (29-60)
[2018-09-13 07:14] LABS: LDL CHOLESTEROL 103 mg/dL (0-129)
--- NOTE | 2018-09-13 07:31 | CARD ---
APPROVED REPORT Date of service: 09/12/2018 EXAM: Two-dimensional and M-mode echocardiogram with Doppler and color Doppler. INDICATION BRADYCARDIA 2D DIMENSIONS Left Atrium (2D)2.8 (1.6-4.0cm)IVSd1.0 (0.7-1.1cm) LVDd3.2 (3.9-5.9cm)PWd1.1 (0.7-1.1cm) LVDs2.1 (2.5-4.0cm)FS (%) 33.9 % LVEF (%)64.0 (>50%) M-Mode DIMENSIONS Aortic Root3.40 (2.2-3.7cm)Aortic Cusp Exc.1.70 (1.5-2.0cm) Aortic Valve AoV Peak Ygtazehy020.0cm/Yuliet Peak GR.11mmHgLVOT Peak Cbzyzfnj115.0cm/s LVOT VTI25.80cm Mitral Valve MV E Onoxjkwm95.6cm/sMV A Ohzfpmnw665.0cm/sE/A ratio0.6 TDI Lateral E' Peak V10.10cm/sMedial E' Peak V6.34cm/sE/Lateral E'6.8 E/Medial E'10.8 Pulmonary Valve PV Peak Ybjkfchu896.0cm/sPV Peak Grad.5mmHg Tricuspid Valve TR Peak Zibanaxz171de/sRAP QDAKLAGE18fcZpMS Peak Gr.25mmHg [id number] LEFT VENTRICLE The left ventricle is normal size. There is normal left ventricular wall thickness. Proximal septal thickening is noted. The left ventricular function is normal.EF-60-65% There is normal LV segmental wall motion. Transmitral Doppler flow pattern is Grade III-reversible restrictive diastolic dysfunction. No left ventricle thrombus noted on this study. There is no ventricular septal defect visualized. There is no left ventricular aneurysm. There is no mass noted in the left ventricle. RIGHT VENTRICLE The right ventricle is normal size. There is normal right ventricular wall thickness. The right ventricular systolic function is normal. ATRIA The left atrium size is normal. The right atrium size is normal. The interatrial septum is intact with no evidence for an atrial septal defect. AORTIC VALVE The aortic valve is thickened but opens well. There is trace aortic regurgitation. Aortic Sclerosis Vs Mild There is no aortic valvular vegetation. MITRAL VALVE The mitral valve is thickened but opens well. Mitral regurgitation is trace. There is no mitral valve stenosis. There is no evidence of mitral valve prolapse. TRICUSPID VALVE The tricuspid valve leaflets are thickened , but open well. There is trace to mild tricuspid regurgitation.RVSP-35 mmof Hg There is no tricuspid valve stenosis. There is no tricuspid valve prolapse or vegetation. PULMONIC VALVE The pulmonary valve is normal in structure. There is trace pulmonic valvular regurgitation. There is no pulmonic valvular stenosis. GREAT VESSELS The aortic root is normal in size. The ascending aorta is normal in size. The pulmonary artery is normal. The IVC is normal in size and collapses >50% with inspiration. PERICARDIAL EFFUSION There is no pleural effusion. There is no pericardial effusion. <Conclusion> Normal Chamber Size. EF-60-65% Aortic Sclerosis Vs Mild There is trace aortic regurgitation. Mitral regurgitation is trace. There is trace to mild tricuspid regurgitation.RVSP-35 mmof Hg The IVC is normal in size and collapses >50% with inspiration. There is no pericardial effusion.
[2018-09-13] MEDS: Budesonide 0.5 mg/2 ml Inhal Susp UD IH SCH ×2 (09:01→20:33)
[2018-09-13] MEDS: Arformoterol 15 mcg/2 ml Inh Sol IH SCH ×2 (09:01→20:33)
[2018-09-13] MEDS: Potassium Chloride 10 mEq ER Tab PO SCH (10:03)
[2018-09-13] MEDS: cefTRIAXone 1 gm 1 GM/100 ML BAG IVPB SCH (10:04)
--- NOTE | 2018-09-13 10:54 | CP.PCM.PN ---
<Vernon Omer - Last Filed: 09/13/18 16:12> Subjective - Date & Time of Evaluation Date of Evaluation: 09/13/18 Time of Evaluation: 09:30 - Subjective Subjective: PGY6 GI Fellow Progress Note Patient seen and examined bedside this morning. The patient states she is feeling well and has no complaints at this time. She is very eager to go home. States she had no further episodes of diarrhea or abdominal pain. No events overnight. Of note, patient has been somewhat nonadherent to therapies recommended, refusing Flagyl yesterday and eating foods that have not been recommended given her symptoms. 12 system ROS performed and negative except where stated Objective - Vital Signs/Intake and Output Vital Signs (last 24 hours): Temp Pulse Resp BP Pulse Ox 98 F 96 H 18 172/84 H 97 09/13/18 07:54 09/13/18 10:03 09/13/18 07:54 09/13/18 10:03 09/13/18 07:54 Intake and Output: 09/13/18 09/13/18 06:59 18:59 Intake Total 0 Balance 0 - Medications Medications: Current Medications Acetaminophen (Tylenol 325mg Tab) 650 mg PO Q6H PRN PRN Reason: fever 101.4 Arformoterol Tartrate (Brovana) 15 mcg IH [id number] [facility] Last Admin: 09/13/18 09:01 Dose: 15 mcg Budesonide (Pulmicort Respules) 0.5 mg IH [id number] [facility]RE[facility] Last Admin: 09/13/18 09:01 Dose: 0.5 mg Hydralazine HCl (Apresoline) 10 mg IVP Q6 PRN PRN Reason: Systolic Blood Pressure Ceftriaxone Sodium (Rocephin 1 Gram Ivpb) 1 gm in 100 mls @ 100 mls/hr IVPB DAILY [facility]; Protocol Last Admin: 09/13/18 10:04 Dose: 100 mls/hr Metronidazole (Flagyl) 500 mg in 100 mls @ 100 mls/hr IVPB Q8 [facility]; Protocol Last Admin: 09/13/18 05:35 Dose: Not Given Levalbuterol HCl (Xopenex) 1.25 mg IH Q4H PRN PRN Reason: Shortness of Breath Last Admin: 09/11/18 07:43 Dose: 1.25 mg Lisinopril (Zestril) 5 mg PO DAILY [facility] Last Admin: 09/13/18 10:03 Dose: 5 mg Morphine Sulfate (Morphine) 2 mg IVP Q4H PRN PRN Reason: Pain, moderate (4-7) Last Admin: 09/13/18 10:15 Dose: 2 mg Nicotine (Nicoderm Cq) 1 patch TD DAILY [facility] Last Admin: 09/13/18 10:37 Dose: Not Given Ondansetron HCl (Zofran Inj) 4 mg IVP Q6H PRN PRN Reason: Nausea/Vomiting Last Admin: 09/12/18 08:22 Dose: 4 mg Potassium Chloride (Klor-Con 10) 20 meq PO BRK [facility] Last Admin: 09/13/18 10:03 Dose: 20 meq - Labs Labs: 09/13/18 06:10 09/13/18 09:15 - Constitutional Appears: Non-toxic, No Acute Distress - Eye Exam Eye Exam: EOMI, PERRL - ENT Exam ENT Exam: Mucous Membranes Moist - Respiratory Exam Respiratory Exam: Clear to Ausculation Bilateral. absent: Rales, Rhonchi, Wheezes - Cardiovascular Exam Cardiovascular Exam: RRR, +S1, +S2 - GI/Abdominal Exam GI & Abdominal Exam: Soft, Normal Bowel Sounds. absent: Distended, Firm, Guarding, Rigid, Tenderness, Organomegaly - Extremities Exam Extremities Exam: Normal Inspection. absent: Pedal Edema - Neurological Exam Neurological Exam: Alert, Awake, Oriented x3 - Psychiatric Exam Psychiatric exam: Normal Affect, Normal Mood - Skin Skin Exam: Dry, Warm Assessment and Plan - Assessment and Plan (Free Text) Assessment: Patient is a 63yo female with PMHx significant for COPD, chronic back pain, anxiety, dyslipidemia, idiopathic gastroparesis (per pt), polycythemia vera (per pt) who presented with one day of abdominal pain -Acute abdominal pain suspect acute enteritis -Dilated CBD on U/S -Question of polycythemia vera Plan: -Patient improved overall, continue supportive care and antibiotic therapy as ordered -OK to transition to PO antibiotics per GI standpoint -Elevation in HGB/HCT pronounced and diagnosis of polycythemia vera should be explored - consider hematology consultation -Advance diet as tolerated -Supportive care -Check MRI with MRCP given dilated CBD -Encourage outpatient follow up for initial screening colonoscopy <Eladio Simms V - Last Filed: 09/14/18 20:05> Objective - Vital Signs/Intake and Output Vital Signs (last 24 hours): Temp Pulse Resp BP Pulse Ox 98 F 115 H 20 145/82 97 09/13/18 16:29 09/13/18 18:00 09/13/18 16:29 09/13/18 16:29 09/13/18 16:29 Intake and Output: 09/13/18 09/14/18 18:59 06:59 Intake Total 660 Balance 660 - Medications Medications: Current Medications Acetaminophen (Tylenol 325mg Tab) 650 mg PO Q6H PRN PRN Reason: fever 101.4 Arformoterol Tartrate (Brovana) 15 mcg IH [id number] [facility] Last Admin: 09/13/18 20:33 Dose: Not Given Budesonide (Pulmicort Respules) 0.5 mg IH [id number] [facility] Last Admin: 09/13/18 20:33 Dose: Not Given Hydralazine HCl (Apresoline) 10 mg IVP Q6 PRN PRN Reason: Systolic Blood Pressure Ceftriaxone Sodium (Rocephin 1 Gram Ivpb) 1 gm in 100 mls @ 100 mls/hr IVPB DAILY [facility]; Protocol Last Admin: 09/13/18 10:04 Dose: 100 mls/hr Levalbuterol HCl (Xopenex) 1.25 mg IH Q4H PRN PRN Reason: Shortness of Breath Last Admin: 09/11/18 07:43 Dose: 1.25 mg Lisinopril (Zestril) 5 mg PO DAILY [facility] Last Admin: 09/13/18 10:03 Dose: 5 mg Metronidazole (Flagyl) 500 mg PO Q8 [facility]; Protocol Stop: 09/20/18 22:01 Last Admin: 09/13/18 21:46 Dose: 500 mg Morphine Sulfate (Morphine) 2 mg IVP Q4H PRN PRN Reason: Pain, moderate (4-7) Last Admin: 09/13/18 20:21 Dose: 2 mg Nicotine (Nicoderm Cq) 1 patch TD DAILY [facility] Last Admin: 09/13/18 10:37 Dose: Not Given Ondansetron HCl (Zofran Inj) 4 mg IVP Q6H PRN PRN Reason: Nausea/Vomiting Last Admin: 09/12/18 08:22 Dose: 4 mg Potassium Chloride (Klor-Con 10) 20 meq PO BRK [facility] Last Admin: 09/13/18 10:03 Dose: 20 meq - Labs Labs: 09/13/18 06:10 09/13/18 09:15 Attending/Attestation - Attestation I have personally seen and examined this patient.: Yes I have fully participated in the care of the patient.: Yes I have reviewed all pertinent clinical information, including history, physical exam and plan: Yes Notes (Text): This patient was seen and evaluated earlier along with the GI fellow. This is a delayed an addendum to the progress report dictated by the GI fellow. Had a detailed discussion of the patient. A history of polycythemia being followed by Dr. Shine Hyperviscosity syndrome should also be included in the differential diagnosis. Requested for MRI with MRCP to further evaluate the dilated CBD 09/13/18 23:53 09/14/18 20:03
[2018-09-13] MEDS ORDERED: Sodium Chloride 0.45% 1,000 ML IV SCH (11:30)
[2018-09-13] MEDS ORDERED: Potassium Chloride 20 mEq ER Tab PO ONE ×2 (11:30→13:40)
--- NOTE | 2018-09-13 15:21 | CT ---
Date of service: 09/13/2018 PROCEDURE: CT Chest without contrast HISTORY: smoker COMPARISON: 07/25/2017 TECHNIQUE: Contiguous axial images were obtained through the chest without intravenous contrast enhancement. Sagittal and coronal reconstructions were performed. Radiation dose: Total exam DLP = 163.0 mGy-cm. This CT exam was performed using one or more of the following dose reduction techniques: Automated exposure control, adjustment of the mA and/or kV according to patient size, and/or use of iterative reconstruction technique. FINDINGS: LUNGS: There is a 3 mm nodule in the right upper lobe slightly decreased from the previous study. This can be seen on image 71 series 3. There is emphysema with hyperaeration of the lungs. MEDIASTINUM: Unremarkable thoracic aorta. No aneurysm. Normal sized heart. Main pulmonary artery unremarkable. No vascular congestion. No lymphadenopathy. Minimal aortic calcification PLEURA: No pleural fluid. No pneumothorax. BONES: No fracture. No destructive lesion. UPPER ABDOMEN: Grossly unremarkable. OTHER FINDINGS: None. IMPRESSION: There is a 3 mm nodule in the right upper lobe slightly decreased from the previous study. This can be seen on image 71 series 3. There is emphysema with hyperaeration of the lungs.
--- NOTE | 2018-09-13 15:33 | US ---
Date of service: 09/13/2018 HISTORY: hematuria COMPARISON: None available. TECHNIQUE: Transabdominal only. Real-time technique with 2D, duplex and color Doppler FINDINGS: UTERUS: Measures 1.4 x 2.9 x 5.6 cm. Normal in size and appearance. No fibroid or other mass lesion seen. ENDOMETRIUM: Measures 3.1 mm in diameter. Unremarkable. CERVIX: No cervical abnormality identified. RIGHT OVARY: Not visible LEFT OVARY: Not visible FREE FLUID: No significant free fluid noted. OTHER FINDINGS: Urinary bladder assessment: Prevoid volume: 424 ml Postvoid residual: 108 ml Intrinsic, mural, perivesical abnormalities: None Ureteral jets: Documented bilaterally IMPRESSION: Unremarkable uterus as visualized. Normal capacitance bladder, large postvoid residual. No focal or diffuse bladder wall abnormalities.
--- NOTE | 2018-09-13 16:00 | CP.PCM.CON ---
History of Present Illness - History of Present Illness History of Present Illness: Nephrology Consultation Note: Assessment: Stable uncontrolled HTn with urgency ? stress response to acute illness sepsis with acute gastroenteritis Hypokalemia microscopic hematuria COPD, ex smoker Plan No acute need for renal replacement therapy at this time. Hypertension control with meds as ordered. Maintain hemodynamics stable. Avoid hypotension. Patient on MILES as lisinopril. uptitrate dose as needed Monitor Input/Output, daily weights and renal function with basic metabolic panel supplement lytes as needed can d/c IVF ID and GI following if all GN work up neg then will need urology eval for cystoscopy Check urine analysis, spot protein/creatinine, albumin/creatinine ratio Check GN work up as C3, C4, JANET, Anti dsDNA, ANCA (MPO and NC-3), Anti GBM antibody, Hep B and Hep C serology Secondary HTN work up with plasma renin/aldosterone, plasma metanephrine and renal artery Doppler to r/o renal artery stenosis Dose meds/antibiotics for GFR >60 Glycemic control Further work up/management as per primary team Thanks for allowing me to participate in care of your patient. Will follow patient with you. Please call if any Qs. had d/w team Dr Matti Keating Office: [phone] Chief Complaint; vomitting Reason for consult: HTn HPI: Pt is a 63 F with hx of COPD ex smoker, back pain presented with complaints of vomitting pain abdomen and loose stool over weekend which improved now with treament. pt with sepsis and elevated BP hence renal consulted. pt denies any hx of HTN. says her BP is always good in 110-120s Denies OTC/herbal meds or NSAIDs Noted recent iodinated contrast exposure. feels better now, GI symptoms has resolved. ROS: Cardiovascular: No chest pain. Pulmonary: No shortness of breath Gastrointestinal: denies abdominal pain No nausea. No vomiting. Genitourinary: No pain while urinating. Denies blood in urine. All other negative except as mentioned in HPI Physical Examination: General Appearance: Comfortable, in no acute respiratory distress, co-operative . thin built Vitals reviewed and noted as below Head; Atraumatic, normocephalic ENT: no ulcers no thrush. Tongue is midline. Oropharynx: no rash or ulcers. EYES: Pupils are equal, round and reactive to light accommodation. Eye muscles and extraocular movement intact. Sclera is anicteric. Neck; supple no lymphadenopathy, no thyromegaly or bruit Lungs: Normal respiratory rate/effort. Breath sounds bilateral equal and clear Heart: Normal rate. s1s2 normal. No rub or gallop. Extremities: no edema. No varicose veins Neurological: Patient is alert, awake and oriented to person, place and time. No focal deficit. Strength bilateral appropriate and equal Skin: Warm and dry. Normal turgor. No rash. Palpitation: Normal elasticity for age Abdomen: Abdomen is soft. Bowel sounds +. There is no abdominal tenderness, no guarding/rigidity no organomegaly Psych: normal insight and normal affect/mood MSK: no joint tenderness or swelling. Digits and nails normal, no deformity : kidney or bladder not palpable Labs/imaging reviewed. Past medical history, past surgical history, family history, social history, allergy reviewed and noted as below Family hx: no hx of CKD. Rest non-contributory UA trace protein, moderate blood with RBC CT adrenal and renal WNL HIV neg TSh 0.6 Past Patient History - Infectious Disease Hx of Infectious Diseases: None - Past Social History Smoking Status: Current Some Days Smoker - CARDIAC Hx Cardiac Disorders: No - PULMONARY Hx Respiratory Disorders: Yes Hx Chronic Obstructive Pulmonary Disease (COPD): Yes - NEUROLOGICAL Hx Neurological Disorder: No - HEENT Hx HEENT Problems: No - RENAL Hx Chronic Kidney Disease: No - ENDOCRINE/METABOLIC Hx Endocrine Disorders: No - HEMATOLOGICAL/ONCOLOGICAL Hx Blood Disorders: No - INTEGUMENTARY Hx Dermatological Problems: No - MUSCULOSKELETAL/RHEUMATOLOGICAL Hx Falls: Yes - GASTROINTESTINAL Hx Gastrointestinal Disorders: No - GENITOURINARY/GYNECOLOGICAL Hx Genitourinary Disorders: No - PSYCHIATRIC Hx Psychophysiologic Disorder: No Hx Substance Use: No - SURGICAL HISTORY Hx Surgeries: No - ANESTHESIA Hx Anesthesia: No Hx Anesthesia Reactions: No Hx Malignant Hyperthermia: No Meds Allergies/Adverse Reactions: Allergies Allergy/AdvReac Type Severity Reaction Status Date / Time No Known Allergies Allergy Verified 07/02/18 21:11 - Medications Medications: Current Medications Acetaminophen (Tylenol 325mg Tab) 650 mg PO Q6H PRN PRN Reason: fever 101.4 Arformoterol Tartrate (Brovana) 15 mcg IH [id number] [facility] Last Admin: 09/13/18 09:01 Dose: 15 mcg Budesonide (Pulmicort Respules) 0.5 mg IH [id number] [facility] Last Admin: 09/13/18 09:01 Dose: 0.5 mg Hydralazine HCl (Apresoline) 10 mg IVP Q6 PRN PRN Reason: Systolic Blood Pressure Ceftriaxone Sodium (Rocephin 1 Gram Ivpb) 1 gm in 100 mls @ 100 mls/hr IVPB DAILY [facility]; Protocol Last Admin: 09/13/18 10:04 Dose: 100 mls/hr Metronidazole (Flagyl) 500 mg in 100 mls @ 100 mls/hr IVPB Q8 [facility]; Protocol Last Admin: 09/13/18 14:20 Dose: Not Given Sodium Chloride (Sodium Chloride 0.45%) 1,000 mls @ 75 mls/hr IV .[id number] [facility] Last Admin: 09/13/18 11:45 Dose: 75 mls/hr Levalbuterol HCl (Xopenex) 1.25 mg IH Q4H PRN PRN Reason: Shortness of Breath Last Admin: 09/11/18 07:43 Dose: 1.25 mg Lisinopril (Zestril) 5 mg PO DAILY [facility] Last Admin: 09/13/18 10:03 Dose: 5 mg Morphine Sulfate (Morphine) 2 mg IVP Q4H PRN PRN Reason: Pain, moderate (4-7) Last Admin: 09/13/18 15:29 Dose: 2 mg Nicotine (Nicoderm Cq) 1 patch TD DAILY [facility] Last Admin: 09/13/18 10:37 Dose: Not Given Ondansetron HCl (Zofran Inj) 4 mg IVP Q6H PRN PRN Reason: Nausea/Vomiting Last Admin: 09/12/18 08:22 Dose: 4 mg Potassium Chloride (Klor-Con 10) 20 meq PO BRK [facility] Last Admin: 09/13/18 10:03 Dose: 20 meq Results - Vital Signs Recent Vital Signs: Last Vital Signs Temp 98 F 09/13/18 07:54 Pulse 96 H 09/13/18 10:03 Resp 18 09/13/18 07:54 BP 142/87 09/13/18 11:25 Pulse Ox 97 09/13/18 07:54 - Labs Result Diagrams: 09/13/18 06:10 09/13/18 09:15 Labs: Laboratory Results - last 24 hr 09/12/18 09/13/18 09/13/18 06:00 06:10 06:10 WBC 15.2 H RBC 5.52 Hgb 17.3 H D Hct 50.3 H MCV 91.1 MCH 31.3 MCHC 34.4 RDW 13.6 Plt Count 233 MPV 10.4 Neut % (Auto) 75.3 H Lymph % (Auto) 16.4 L [place] % (Auto) 8.0 H Eos % (Auto) 0.1 L Baso % (Auto) 0.2 Lymph # (Auto) 2.5 [place] # (Auto) 1.2 H Eos # (Auto) 0.0 Baso # (Auto) 0.03 Absolute Neuts (auto) 11.44 H Sodium 134 Potassium 3.3 L Chloride 96 L Carbon Dioxide 28 Anion Gap 13 BUN 9 Creatinine 0.5 L Est GFR ( Amer) > 60 Est GFR (Non-Af Amer) > 60 Random Glucose 134 H Hemoglobin A1c Calcium 9.2 Phosphorus 3.4 Magnesium 1.7 Total Bilirubin 1.0 AST 36 ALT 19 Alkaline Phosphatase 92 Total Protein 7.5 Albumin 4.2 Globulin 3.3 Albumin/Globulin Ratio 1.3 Triglycerides 68 Cholesterol 205 H LDL Cholesterol Direct 103 HDL Cholesterol 68 H TSH 3rd Generation HIV 1&2 Ag/Ab, 4th Gen Nonreactive 09/13/18 09/13/18 09/13/18 06:10 06:10 09:15 WBC RBC Hgb Hct MCV MCH MCHC RDW Plt Count MPV Neut % (Auto) Lymph % (Auto) [place] % (Auto) Eos % (Auto) Baso % (Auto) Lymph # (Auto) [place] # (Auto) Eos # (Auto) Baso # (Auto) Absolute Neuts (auto) Sodium Potassium 3.0 L Chloride Carbon Dioxide Anion Gap BUN Creatinine Est GFR ( Amer) Est GFR (Non-Af Amer) Random Glucose Hemoglobin A1c 6.0 Calcium Phosphorus Magnesium Total Bilirubin AST ALT Alkaline Phosphatase Total Protein Albumin Globulin Albumin/Globulin Ratio Triglycerides Cholesterol LDL Cholesterol Direct HDL Cholesterol TSH 3rd Generation 0.67 HIV 1&2 Ag/Ab, 4th Gen
[2018-09-13 16:11] VITALS: RESP 20
--- NOTE | 2018-09-13 18:59 | PN ---
DATE: 09/13/2018 LOCATION: Room 365, bed 2. REASON FOR CONSULTATION AND FOLLOWUP: Episode of sinus block, Mobitz type 2 and multiple pauses, 2.78 and 3.5 seconds. There is no vomiting. BRIEF HISTORY OF PRESENT ILLNESS: A 63-year-old female, active tobacco abuse, history of pulmonary nodule, admitted of cramping abdominal pain and yesterday morning the patient had episode of vomiting. During the vomiting, her heartbeat got slow and she had sinus block with Mobitz type 2 and multiple pauses of 2.78 and 3.5 second, but that was all during the vomiting. The patient denied any chest pain, shortness of breath, palpitation, dizziness, or syncope. The patient's mitral rhythm has been okay since then. During the night, she had episode of junctional rhythm of 98 per minute, asymptomatic; that was around 4:30 am this morning, otherwise no arrhythmia noted. The patient is lying flat in bed without any cardiac symptoms of chest pain, shortness of breath, or palpitation. PHYSICAL EXAMINATION: VITAL SIGNS: Blood pressure 142/87, respirations 18, pulse 96, temperature 98. HEENT: Head is normocephalic. Eyes, pupils normal. Conjunctivae normal. Nose and throat, normal. NECK: JVP low. Carotids equal. THORAX: AP diameter normal. LUNGS: Clear. CARDIOVASCULAR: S1, S2. ABDOMEN: Soft. Bowel sound normal. EXTREMITIES: No clubbing. No cyanosis. LABORATORY DATA: WBC 15.2, hemoglobin 17.3, hematocrit 50.3, platelet 233. Sodium 134, potassium 3.3 and repeat potassium 3, BUN 9, creatinine 0.5. Phosphorus, magnesium, calcium normal. Protein and albumin was normal. Triglycerides 68, cholesterol 205, earlier 103, HDL 68. TSH 0.67. DIAGNOSES: Chronic obstructive pulmonary disease, active tobacco abuse, history of pulmonary nodule, abdominal pain, working diagnoses of colitis and sepsis, initially WBC count was 19, during the vomiting the patient had episode of bradycardia with sinus arrest, rule out sick sinus syndrome, ruled out any structural heart disease. RECOMMENDATIONS: The patient's bradycardia probably was related to vomiting. Since then, the patient had no episode of bradycardia, but we will rule out sick sinus syndrome. Hypokalemia, we will give K therapy. Holter monitor has been ordered. The patient received 20 mEq of potassium today. The patient on metronidazole 500 mg intravenous every 8 hours, Brovana 15 mcg inhalation every 12 hours, lisinopril 5 mg daily. We will give another potassium of 40 mEq p.o. today. Repeat labs have been already requested for tomorrow. We will follow with you. Xochitl Mcneil MD
[2018-09-13 20:04] LABS: COMPLEMENT C4 28.1 mg/dL (14.0-44.0)
[2018-09-13 20:27] LABS: HEPATITIS B SURFACE AG Negative (NEGATIVE)
[2018-09-13 20:45] LABS: HEPATITIS C ANTIBODY NEGATIVE (NEGATIVE)
[2018-09-13 20:46] LABS: HEPATITIS B CORE AB NEGATIVE (NEGATIVE)
--- NOTE | 2018-09-14 01:00 | PN ---
DATE: 09/13/2018 SUBJECTIVE: The patient is stable today. She has no chest pain. No short of breath. No abdominal pain. Afebrile. Seen by Dr. Shine of Hematology for elevated hematocrit and hemoglobin. PHYSICAL EXAMINATION: As follows: VITAL SIGNS: Temperature 98, heart rate 96, blood pressure 172/84, respirations 18, saturation 97%. HEAD AND NECK: Normal. No JVD. No thyromegaly. CHEST: Clear bilateral. CARDIAC: First sound and second sounds are normal. No murmur, rub, or gallop. ABDOMEN: Soft, nontender. EXTREMITIES: No edema. NEUROLOGIC: Normal. LABORATORY STUDIES: As I mentioned here, her white count 15.2, hemoglobin 17.3, hematocrit 50.3, platelets 233. Chemistry: Sodium 134, potassium 3.3, chloride 96, bicarb 28, BUN 9, creatinine 0.5, blood sugar 134. Liver function tests are normal. LDL is 103, HDL is 68. TSH 0.67. Procalcitonin is 0.05. IMPRESSION AND PLAN: 1. Acute abdominal pain, acute gastroenteritis. She is stable now. No nausea. No vomiting. CT scan is negative. Continue current therapy as per Gastroenterology and Infectious Disease consult. Currently, she is on Flagyl, still on Rocephin 1 g daily and intravenous hydration switched to half-normal saline at 100 mL as the patient has high blood pressure. 2. Hypertension. The patient is resistant to get clonidine or hydralazine. I explained the patient that and we are going to get the hypertension specialist, Dr. Matti Keating, Nephrology to manage the hypertension. At this time, continue Zestril 5 mg daily and hydralazine 10 mg every 6 hours as needed. 3. Chronic obstructive pulmonary disease, tobacco addiction. Continue NicoDerm and nebulizer treatment. 4. Polycythemia. She does have a smoking problem with secondary polycythemia which came close to hyperviscosity syndrome, has been explained by Dr. Simms especially if not hydrated well. We will continue current therapy. We will get the consultation by the Hematology, Dr. Shine. Jerson Javier MD
--- NOTE | 2018-09-14 01:32 | PN ---
DATE: 09/12/2018 SUBJECTIVE: She is comfortable, no abdominal pain, and no fever. She is still running high blood pressure, episodic in the morning, especially refused medication clonidine, and hydralazine was given to her. PHYSICAL EXAMINATION: VITAL SIGNS: Her temperature 98.6, heart rate 105, blood pressure 138/81, respirations 20, and saturations 96% on room air. HEAD AND NECK: Normal. No JVD, no thyromegaly. CHEST: Clear bilaterally. CARDIAC: First sound and second sound normal. No murmur, rub, or gallop. ABDOMEN: Soft and nontender. EXTREMITIES: No edema. NEUROLOGIC: Normal. LABORATORY DATA: Shows white count 16,000, hemoglobin 15.1, hematocrit 45.6, and platelets 238. Chemistry shows sodium 140, potassium 3.4, chloride 104, bicarbonate 25, BUN 10, creatinine 0.5, blood sugar 134, calcium 8.9, AST is 42, and ALT 23. Alkaline phosphatase, total protein, albumin, and globulin are normal. IMPRESSION AND PLAN: 1. Acute gastroenteritis, etiology unclear. Continue Rocephin as per Infectious Disease consults. 2. The patient has chronic obstructive pulmonary disease. Continue Nicoderm and nebulizer treatment. She is . 3. Hypertension, episodic. She does not want clonidine. We will give her hydralazine 10 mg every 6 hours p.r.n. and Zestril 5 mg p.o. daily. This patient is running high hemoglobin and hematocrit. Her hemoglobin is 15.1 and hematocrit 45.6 after hydration. Continue current therapy. Follow up with GI consults, Infectious Disease consults as sed rate is 6. Plan is to continue current therapy, and we will follow up clinically. Jerson Javier MD
[2018-09-14] MEDS: Morphine 2 mg/ml ISec IVP PRN ×2 (02:08→09:31)
[2018-09-14] MEDS ORDERED: Sodium Chloride 0.9% 1,000 ML IV SCH (02:30)
--- NOTE | 2018-09-14 02:47 | PN ---
DATE: 09/13/2018 SUBJECTIVE: The patient is seen in bed, seen early today in room 365. She states that her diarrhea is improved. Her abdominal pain is improved. PHYSICAL EXAMINATION: VITAL SIGNS: On exam, her temperature is down to 98, blood pressure is 145/80, respiratory rate of 18. HEENT: Unremarkable. NECK: Supple. LUNGS: Have decreased breath sounds. HEART: Normal S1, S2. ABDOMEN: Soft. LABORATORY DATA: Reveals a white count of 15,200, hemoglobin is 13. BUN of 9, creatinine of 0.5. Urinalysis is noted. Immunology is reviewed. Serology is noted. Microbiology, blood cultures are negative. I am waiting for stool cultures. The patient had a CAT scan of the chest, which is noted, and 's progress note is reviewed. ASSESSMENT AND PLAN: This is a 63-year-old female, admitted with sepsis, gastroparesis, gastroenteritis, awaiting for stool culture and white count is down to 15,000 with a hemoglobin of 17.3. Stool cultures still not being collected though has been ordered several times. We will change the Flagyl to p.o. We are going to switch to p.o. antibiotics. We will follow with you. Gucci Piña MD
[2018-09-14 06:01] LABS: URINE APPEARANCE SL CLOUDY (CLEAR); URINE BILIRUBIN NEGATIVE (NEGATIVE); URINE BLOOD SMALL (NEGATIVE); URINE COLOR YELLOW (YELLOW); URINE GLUCOSE (UA) NEGATIVE (NEGATIVE); URINE LEUKOCYTE ESTERASE MODERATE Leu/uL (NEGATIVE); URINE PROTEIN NEGATIVE mg/dL (<30 mg/dL); URINE UROBILINOGEN 0.2 E.U./dL (<1 E.U./dL)
[2018-09-14 06:25] LABS: URINE BACTERIA OCC /hpf
--- NOTE | 2018-09-14 07:02 | CP.PCM.PN ---
Subjective - Date & Time of Evaluation Date of Evaluation: 09/14/18 Time of Evaluation: 06:50 - Subjective Subjective: Awake, alert, no distress Reason for consultation and follow up: Cardiac evaluation of Mobitz type 2 and multiple pauses 2.78 seconds and 3.5 seconds during vomiting, Seen and examined by me and Dr. Oden Objective - Vital Signs/Intake and Output Vital Signs (last 24 hours): Temp Pulse Resp BP Pulse Ox 98.7 F 98 H 20 151/88 H 96 09/14/18 00:01 09/14/18 06:00 09/14/18 00:01 09/14/18 00:01 09/14/18 00:01 Intake and Output: 09/13/18 09/14/18 18:59 06:59 Intake Total 1260 Output Total 200 Balance 1060 - Medications Medications: Current Medications Acetaminophen (Tylenol 325mg Tab) 650 mg PO Q6H PRN PRN Reason: fever 101.4 Arformoterol Tartrate (Brovana) 15 mcg IH [id number] [facility] Last Admin: 09/13/18 20:33 Dose: Not Given Budesonide (Pulmicort Respules) 0.5 mg IH [id number] [facility] Last Admin: 09/13/18 20:33 Dose: Not Given Hydralazine HCl (Apresoline) 10 mg IVP Q6 PRN PRN Reason: Systolic Blood Pressure Ceftriaxone Sodium (Rocephin 1 Gram Ivpb) 1 gm in 100 mls @ 100 mls/hr IVPB DAILY [facility]; Protocol Last Admin: 09/13/18 10:04 Dose: 100 mls/hr Sodium Chloride (Sodium Chloride 0.9%) 1,000 mls @ 60 mls/hr IV .[id number] [facility] Stop: 09/14/18 19:09 Last Admin: 09/14/18 05:31 Dose: 60 mls/hr Levalbuterol HCl (Xopenex) 1.25 mg IH Q4H PRN PRN Reason: Shortness of Breath Last Admin: 09/11/18 07:43 Dose: 1.25 mg Lisinopril (Zestril) 5 mg PO DAILY [facility] Last Admin: 09/13/18 10:03 Dose: 5 mg Metronidazole (Flagyl) 500 mg PO Q8 [facility]; Protocol Stop: 09/20/18 22:01 Last Admin: 09/14/18 05:34 Dose: 500 mg Morphine Sulfate (Morphine) 2 mg IVP Q4H PRN PRN Reason: Pain, moderate (4-7) Last Admin: 09/14/18 02:08 Dose: 2 mg Nicotine (Nicoderm Cq) 1 patch TD DAILY [facility] Last Admin: 09/13/18 10:37 Dose: Not Given Ondansetron HCl (Zofran Inj) 4 mg IVP Q6H PRN PRN Reason: Nausea/Vomiting Last Admin: 09/12/18 08:22 Dose: 4 mg Potassium Chloride (Klor-Con 10) 20 meq PO BRK [facility] Last Admin: 09/13/18 10:03 Dose: 20 meq - Labs Labs: 09/13/18 06:10 09/13/18 09:15 - Constitutional Appears: Non-toxic, No Acute Distress - Eye Exam Eye Exam: Normal appearance Pupil Exam: NORMAL ACCOMODATION - ENT Exam ENT Exam: Mucous Membranes Moist, Normal Exam - Respiratory Exam Respiratory Exam: Clear to Ausculation Bilateral, NORMAL BREATHING PATTERN - Cardiovascular Exam Cardiovascular Exam: +S1, +S2 Additional comments: Telemetry junctional rhythm - GI/Abdominal Exam GI & Abdominal Exam: Soft, Normal Bowel Sounds Additional comments: denies vomiting - Extremities Exam Extremities Exam: Full ROM, Normal Capillary Refill - Neurological Exam Neurological Exam: Alert, Awake, Oriented x3 - Psychiatric Exam Psychiatric exam: Normal Affect, Normal Mood - Skin Skin Exam: Dry, Normal Color, Warm Assessment and Plan - Assessment and Plan (Free Text) Assessment: A 63 year old female who came in to the ER due to abdominal pain possibly colitis/enteritis. Had episode of slow heartbeat/ sinus block Mobitz type 2 and multiple pauses 2.78 seconds and 3.5 seconds during vomiting. History of COPD, chronic back pain,gastroparesis, polycythemia vera, anxiety, dyslipidemia, current tobacco abuse, and history of pulmonary nodule. EKG in ER sinus tachycardia.No further episode of bradycardia. Telemetry shows sinus tachycardia and episode of junctional rhythm. Holter monitor to rule out sick sinus syndrome. Will follow up result. Plan: Denies vomiting, denies chest pain Heart rate sinus tachycardia Blood pressure controlled No further episode of bradycardia Will follow up Holter monitor result On Lisinopril 5 mg daily,Nicotine patch daily, Potassium 20 meq daily Continue current treatment Continue current medications Smoking cessation Will follow up Plan and treatment discussed with Dr. Oden
[2018-09-14 07:12] LABS: HEMOGLOBIN 16.9 g/dL (12.0-16.0); MEAN CORPUSCULAR HEMOGLOBIN 31.1 pg (25.0-35.0); MEAN CORPUSCULAR HGB CONC 34.2 g/dl (31.0-37.0); MEAN PLATELET VOLUME 10.6 fl (7.0-11.0); RBC 5.43 10^6/uL (3.5-6.1); RED CELL DISTRIBUTION WIDTH 13.4 % (11.5-14.5); WHITE BLOOD COUNT 14.9 10^3/uL (4.5-11.0)
[2018-09-14 07:26] LABS: ALB/GLOB RATIO 1.4 (1.1-1.8); ALBUMIN 3.9 g/dL (3.0-4.8); ALT/SGPT 21 U/L (7-56); AST/SGOT 29 U/L (14-36); BLOOD UREA NITROGEN 9 mg/dL (7-21); CALCIUM 9.5 mg/dL (8.4-10.5); GFR NON-AFRICAN AMERICAN > 60
[2018-09-14 08:03] VITALS: BP 152/80; PULSE 100; TEMP 99; O2SAT 97
[2018-09-14] MEDS: Arformoterol 15 mcg/2 ml Inh Sol IH SCH (08:10)
[2018-09-14] MEDS: Budesonide 0.5 mg/2 ml Inhal Susp UD IH SCH (08:10)
--- NOTE | 2018-09-14 08:13 | CON ---
DATE: 09/13/2018 This is [facility]'s [place] [facility] visit on the medical floor. For Dr. Shine. CHIEF COMPLAINT: Abdominal pain. HISTORY OF PRESENT ILLNESS: The patient is a 63-year-old female admitted via the emergency room 3 days prior for suprapubic abdominal pain with known history of polycythemia vera and COPD. At present, the patient is to have a phlebotomy of [address] Shine's recommendation with the patient having been seen in Dr. Shine's office in 11/2014 on the last visit. At that time, she was known to have hepatocellular disease based on liver/spleen scan in 2013 with a shift in activity to reticuloendothelial system suggesting hepatocellular disease with the patient then being treated with holistic supplements and being followed by Dr. Gucci Ledbetter at the time. FAMILY HISTORY AND SOCIAL HISTORY: The patient admits to significant smoking history greater than a pack a day. Denies alcohol use, quitting in the past. Otherwise noncontributory. PAST MEDICAL HISTORY: COPD, hyperlipidemia, anxiety, insomnia, abdominal discomfort workup with abnormal liver/spleen scan as described above with polycythemia vera. Her testing at that time included JAK3 mutation negative, PCR negative, BCR-ABL negative with the patient lost to follow up as above with the diagnosis that of secondary polycythemia, gastroparesis, anxiety, DJD of the hips and knees. ALLERGIES: QUESTIONABLE PENICILLIN; HOWEVER, AMOXICILLIN WAS TAKEN WITHOUT PROBLEM, SHE REPORTS, AT THAT TIME. MEDICATIONS: At present include hydralazine, Brovana, Catapres, Flagyl, potassium, morphine, nicotine patch, Pulmicort, Rocephin, Tylenol, Xopenex, Zestril, Zofran. REVIEW OF SYSTEMS: The 12-point review of systems is negative to questioning except for items mentioned in history of present illness. OBJECTIVE/PHYSICAL EXAMINATION: VITAL SIGNS: Temperature 98, pulse 115, respirations 20, blood pressure 145/82, pulse ox 97%. HEENT: Unremarkable. NECK: Supple. HEART: Regular rate. LUNGS: Clear. ABDOMEN: Soft and nontender. EXTREMITIES: No edema. SKIN: Warm and dry. NEUROLOGIC: Awake and alert. LABORATORY DATA: The patient's labs were done. White blood cell count of 15.2 down from 26.2 earlier in her hospital stay with a hemoglobin of 17.3, hematocrit of 50.3, platelet count of 233,00. Her metabolic panel showed a potassium of 3.3 with a repeat of 3.0 with an otherwise normal metabolic panel. Procalcitonin less than 0.05. Hepatitis testing is pending. The patient had a CT scan of her chest done earlier today, and it was read as 3-mm nodule right upper lobe, slightly decreased from previous study can be seen on images , emphysema, hyperaeration of the lungs. They had EKG done yesterday, and it showed sinus tachycardia, septal infarct age indeterminate. Her echocardiogram was done yesterday, and it was read as ejection fraction of 65%, aortic sclerosis, no pericardial effusion. Abdominal ultrasound was done two days prior, and it was read as dilated proximal common bile duct without choledocholithiasis, consider MRCP. The patient had a chest x-ray done two days prior, and it was read as no active disease. She had a CT scan of the abdomen and pelvis done three days prior, and it was read as unremarkable contrast enhanced CT of the abdomen and pelvis. ASSESSMENT: For this patient is that of abdominal pain, chronic obstructive pulmonary disease secondary to polycythemia, rule out sepsis, history of bradycardia, leukocytosis. PLAN: For this patient after conversation with Dr. Shine is to have a phlebotomy 500 mL today with further recommendations as per consultants as listed above. This is a complex patient with a comprehensive medically necessary and appropriate visit carried out in excess of 40 minutes with the patient's questions answered to her satisfaction. Salty Torres MD
[2018-09-14] MEDS ORDERED: Gadodiamide 287 MG/ML VIAL (15ML) IV ONE (08:15)
[2018-09-14] MEDS: cefTRIAXone 1 gm 1 GM/100 ML BAG IVPB SCH (09:30)
[2018-09-14] MEDS: Potassium Chloride 10 mEq ER Tab PO SCH (09:30)
[2018-09-14 10:44] LABS: 23 KD (IGG) BAND Nonreactive
--- NOTE | 2018-09-14 11:00 | US ---
PROCEDURE: Bilateral renal artery duplex ultrasound. CLINICAL HISTORY: Renal artery stenosis. Uncontrolled hypertension. Evaluate for renovascular hypertension. PHYSICIAN(S): Regulo Ledbetter M.D. TECHNIQUE: Duplex sonography with color-flow Doppler was used to evaluate the visualized segments of the main renal arteries. The patient was evaluated in a fasting state. Imaging in a supine and decubitus position was performed. Limited evaluation of the arcuate waveforms and resistive indices were performed. FINDINGS: The overall quality of the study is adequate. The kidneys are normal in size, shape, and location. The right kidney measures 9.5cm in length and the left kidney measures 9.5cm in length. No solid renal masses, abnormal calcifications, or hydronephrosis is seen. The main right renal artery is well visualized from the aorta to the hilum. The peak systolic velocity in the right main renal artery is 108 cm/sec. This is consistent with a 0 to 49% stenosis in the main right renal artery. The arcuate waveforms are normal. The resistive index is normal. The main left renal artery is also fairly well seen from its origin to the renal hilum. The peak systolic velocity in the main left renal artery is 105cm/sec. This corresponds to a 0 to 49% stenosis in the main left renal artery. The arcuate waveforms and resistive indices are normal. IMPRESSION: 1. The main renal arteries are well visualized. 2. No sonographically significant stenosis is identified. 3. The kidneys are normal and symmetric in size. There are no solid renal masses, abnormal calcifications or hydronephrosis noted.
--- NOTE | 2018-09-14 13:10 | CP.PCM.PN ---
<BrandeefaustobrandenVernon - Last Filed: 09/14/18 16:35> Subjective - Date & Time of Evaluation Date of Evaluation: 09/14/18 Time of Evaluation: 08:45 - Subjective Subjective: PGY6 GI Fellow Progress Note Patient seen and examined bedside this morning. She is tolerating breakfast without issue. She denies any nausea, vomiting or abdominal pain. No events overnight. 12 system ROS performed and negative except where stated Objective - Vital Signs/Intake and Output Vital Signs (last 24 hours): Temp Pulse Resp BP Pulse Ox 99 F 100 H 20 152/80 H 97 09/14/18 08:02 09/14/18 08:02 09/14/18 08:02 09/14/18 08:02 09/14/18 08:02 Intake and Output: 09/14/18 09/14/18 06:59 18:59 Intake Total 1260 Output Total 200 Balance 1060 - Medications Medications: Current Medications Acetaminophen (Tylenol 325mg Tab) 650 mg PO Q6H PRN PRN Reason: fever 101.4 Arformoterol Tartrate (Brovana) 15 mcg IH [id number] [facility] Last Admin: 09/14/18 08:10 Dose: Not Given Budesonide (Pulmicort Respules) 0.5 mg IH [id number] [facility] Last Admin: 09/14/18 08:10 Dose: Not Given Hydralazine HCl (Apresoline) 10 mg IVP Q6 PRN PRN Reason: Systolic Blood Pressure Ceftriaxone Sodium (Rocephin 1 Gram Ivpb) 1 gm in 100 mls @ 100 mls/hr IVPB DAILY [facility]; Protocol Last Admin: 09/14/18 09:30 Dose: 100 mls/hr Sodium Chloride (Sodium Chloride 0.9%) 1,000 mls @ 60 mls/hr IV .[id number] [facility] Stop: 09/14/18 19:09 Last Admin: 09/14/18 05:31 Dose: 60 mls/hr Levalbuterol HCl (Xopenex) 1.25 mg IH Q4H PRN PRN Reason: Shortness of Breath Last Admin: 09/11/18 07:43 Dose: 1.25 mg Lisinopril (Zestril) 10 mg PO DAILY [facility] Metronidazole (Flagyl) 500 mg PO Q8 [facility]; Protocol Stop: 09/20/18 22:01 Last Admin: 09/14/18 05:34 Dose: 500 mg Morphine Sulfate (Morphine) 2 mg IVP Q4H PRN PRN Reason: Pain, moderate (4-7) Last Admin: 09/14/18 09:31 Dose: 2 mg Nicotine (Nicoderm Cq) 1 patch TD DAILY [facility] Last Admin: 09/14/18 09:33 Dose: Not Given Ondansetron HCl (Zofran Inj) 4 mg IVP Q6H PRN PRN Reason: Nausea/Vomiting Last Admin: 09/12/18 08:22 Dose: 4 mg Potassium Chloride (Klor-Con 10) 20 meq PO BRK [facility] Last Admin: 09/14/18 09:30 Dose: 20 meq - Labs Labs: 09/14/18 06:30 09/14/18 06:30 - Constitutional Appears: Non-toxic, No Acute Distress - Eye Exam Eye Exam: EOMI, PERRL - ENT Exam ENT Exam: Mucous Membranes Moist - Respiratory Exam Respiratory Exam: Clear to Ausculation Bilateral. absent: Rales, Rhonchi, Wheezes - Cardiovascular Exam Cardiovascular Exam: RRR, +S1, +S2 - GI/Abdominal Exam GI & Abdominal Exam: Soft, Normal Bowel Sounds. absent: Distended, Firm, Guarding, Rigid, Tenderness, Organomegaly - Extremities Exam Extremities Exam: Normal Inspection. absent: Pedal Edema - Neurological Exam Neurological Exam: Alert, Awake, Oriented x3 - Psychiatric Exam Psychiatric exam: Normal Affect, Normal Mood - Skin Skin Exam: Dry, Warm Assessment and Plan - Assessment and Plan (Free Text) Assessment: Patient is a 63yo female with PMHx significant for COPD, chronic back pain, anxiety, dyslipidemia, idiopathic gastroparesis (per pt), polycythemia vera (per pt) who presented with one day of abdominal pain -Acute abdominal pain suspect acute enteritis -Dilated CBD on U/S -Polycythemia vera Plan: -Awaiting MRCP -Asymptomatic presently -OK to transition to PO antibiotics per GI standpoint -Appreciate hematology consultation in light of polycytemia - recommendation for 500cc phlebotomy -Diet as tolerated -Supportive care -Encourage outpatient follow up for initial screening colonoscopy <Eladio Simms V - Last Filed: 09/14/18 19:59> Objective - Vital Signs/Intake and Output Vital Signs (last 24 hours): Temp Pulse Resp BP Pulse Ox 99 F 100 H 20 152/80 H 97 09/14/18 08:02 09/14/18 08:02 09/14/18 08:02 09/14/18 08:02 09/14/18 08:02 - Labs Labs: 09/14/18 06:30 09/14/18 06:30 Attending/Attestation - Attestation I have personally seen and examined this patient.: Yes I have fully participated in the care of the patient.: Yes I have reviewed all pertinent clinical information, including history, physical exam and plan: Yes Notes (Text): This patient was seen and evaluated along with the GI fellow earlier today. Patient did go for MRCP today which was reviewed later. No CBD stone present. No obstructing lesion noticed. Recommended to complete antibiotic course. Patient does have polycythemia advised the patient follow-up with the Dr. Shine. Advise follow-up with the doctors Concepcion and follow-up in our office in 2 to 3 weeks time for elective endoscopy evaluation and follow-up 09/14/18 19:57
--- NOTE | 2018-09-14 13:49 | MRI ---
Date of service: 09/14/2018 PROCEDURE: Magnetic Resonance Cholangiopancreatography with and without contrast HISTORY: Dilated CBD COMPARISON: Ultrasound 09/11/2018 TECHNIQUE: Multiplanar, multisequence MR images of the abdomen were obtained, including heavily T2 weighted MRCP images of the biliary system. Rotating maximum intensity projection images of the biliary system were generated. 15 cc of Omniscan FINDINGS: MRCP: No evidence of choledocholithiasis. The proximal common duct is dilated measuring 9 mm. The distal common duct shows a normal taper. There is no obstructing mass or stone. LIVER: Unremarkable. GALLBLADDER: Gallstone SPLEEN: Unremarkable. PANCREAS: Unremarkable. ADRENALS: Unremarkable. KIDNEYS: Unremarkable. AORTA: No aneurysm. ASCITES: None. OTHER FINDINGS: None. IMPRESSION: No evidence of choledocholithiasis. The proximal common duct is dilated measuring 9 mm. The distal common duct shows a normal taper. There is no obstructing mass or stone.
--- NOTE | 2018-09-14 14:40 | CP.PCM.PN ---
Subjective - Date & Time of Evaluation Date of Evaluation: 09/14/18 Time of Evaluation: 14:38 - Subjective Subjective: Nephrology Consultation Note: Assessment: Stable uncontrolled HTn with urgency ? stress response to acute illness sepsis with acute gastroenteritis Hypokalemia microscopic hematuria COPD, ex smoker vit d def Plan No acute need for renal replacement therapy at this time. Hypertension control with meds as ordered. Maintain hemodynamics stable. Avoid hypotension. Patient on MILES as lisinopril increased to 10 mg/d Monitor Input/Output, daily weights and renal function with basic metabolic panel supplement lytes as needed can d/c IVF ID and GI following if all GN work up neg then will need urology eval for cystoscopy added weekly vit d Check urine analysis, spot protein/creatinine, albumin/creatinine ratio Check GN work up as C3, C4, JANET, Anti dsDNA, ANCA (MPO and VT-3), Anti GBM antibody, Hep B and Hep C serology Secondary HTN work up with plasma renin/aldosterone, plasma metanephrine and renal artery Doppler to r/o renal artery stenosis Dose meds/antibiotics for GFR >60 Glycemic control Further work up/management as per primary team Thanks for allowing me to participate in care of your patient. Will follow patient with you. Please call if any Qs. had d/w team Dr Matti Keating Office: [phone] Chief Complaint; vomitting Reason for consult: HTn HPI: Pt is a 63 F with hx of COPD ex smoker, back pain presented with complaints of vomitting pain abdomen and loose stool over weekend which improved now with treament. pt with sepsis and elevated BP hence renal consulted. pt denies any hx of HTN. says her BP is always good in 110-120s Denies OTC/herbal meds or NSAIDs Noted recent iodinated contrast exposure. feels better now, GI symptoms has resolved. ROS: Cardiovascular: No chest pain. Pulmonary: No shortness of breath Gastrointestinal: denies abdominal pain No nausea. No vomiting. Genitourinary: No pain while urinating. Denies blood in urine. All other negative except as mentioned in HPI Physical Examination: General Appearance: Comfortable, in no acute respiratory distress, co-operative . thin built Vitals reviewed and noted as below Head; Atraumatic, normocephalic ENT: no ulcers no thrush. Tongue is midline. Oropharynx: no rash or ulcers. EYES: Pupils are equal, round and reactive to light accommodation. Eye muscles and extraocular movement intact. Sclera is anicteric. Neck; supple no lymphadenopathy, no thyromegaly or bruit Lungs: Normal respiratory rate/effort. Breath sounds bilateral equal and clear Heart: Normal rate. s1s2 normal. No rub or gallop. Extremities: no edema. No varicose veins Neurological: Patient is alert, awake and oriented to person, place and time. No focal deficit. Strength bilateral appropriate and equal Skin: Warm and dry. Normal turgor. No rash. Palpitation: Normal elasticity for age Abdomen: Abdomen is soft. Bowel sounds +. There is no abdominal tenderness, no guarding/rigidity no organomegaly Psych: normal insight and normal affect/mood MSK: no joint tenderness or swelling. Digits and nails normal, no deformity : kidney or bladder not palpable Labs/imaging reviewed. Past medical history, past surgical history, family history, social history, allergy reviewed and noted as below Family hx: no hx of CKD. Rest non-contributory UA trace protein, moderate blood with RBC CT adrenal and renal WNL HIV neg TSh 0.6 Objective - Vital Signs/Intake and Output Vital Signs (last 24 hours): Temp Pulse Resp BP Pulse Ox 99 F 100 H 20 152/80 H 97 09/14/18 08:02 09/14/18 08:02 09/14/18 08:02 09/14/18 08:02 09/14/18 08:02 Intake and Output: 09/14/18 09/14/18 06:59 18:59 Intake Total 1260 Output Total 200 Balance 1060 - Medications Medications: Current Medications Acetaminophen (Tylenol 325mg Tab) 650 mg PO Q6H PRN PRN Reason: fever 101.4 Arformoterol Tartrate (Brovana) 15 mcg IH [id number] [facility] Last Admin: 09/14/18 08:10 Dose: Not Given Budesonide (Pulmicort Respules) 0.5 mg IH [id number] [facility] Last Admin: 09/14/18 08:10 Dose: Not Given Hydralazine HCl (Apresoline) 10 mg IVP Q6 PRN PRN Reason: Systolic Blood Pressure Ceftriaxone Sodium (Rocephin 1 Gram Ivpb) 1 gm in 100 mls @ 100 mls/hr IVPB DAILY [facility]; Protocol Last Admin: 09/14/18 09:30 Dose: 100 mls/hr Sodium Chloride (Sodium Chloride 0.9%) 1,000 mls @ 60 mls/hr IV .[id number] [facility] Stop: 09/14/18 19:09 Last Admin: 09/14/18 05:31 Dose: 60 mls/hr Levalbuterol HCl (Xopenex) 1.25 mg IH Q4H PRN PRN Reason: Shortness of Breath Last Admin: 09/11/18 07:43 Dose: 1.25 mg Lisinopril (Zestril) 10 mg PO DAILY [facility] Metronidazole (Flagyl) 500 mg PO Q8 [facility]; Protocol Stop: 09/20/18 22:01 Last Admin: 09/14/18 05:34 Dose: 500 mg Morphine Sulfate (Morphine) 2 mg IVP Q4H PRN PRN Reason: Pain, moderate (4-7) Last Admin: 09/14/18 09:31 Dose: 2 mg Nicotine (Nicoderm Cq) 1 patch TD DAILY [facility] Last Admin: 09/14/18 09:33 Dose: Not Given Ondansetron HCl (Zofran Inj) 4 mg IVP Q6H PRN PRN Reason: Nausea/Vomiting Last Admin: 09/12/18 08:22 Dose: 4 mg Potassium Chloride (Klor-Con 10) 20 meq PO BRK [facility] Last Admin: 09/14/18 09:30 Dose: 20 meq - Labs Labs: 09/14/18 06:30 09/14/18 06:30
[2018-09-14] MEDS ORDERED: Ergocalciferol 50,000 Intl Units Cap PO SCH (14:45)
--- NOTE | 2018-09-14 21:05 | PN ---
DATE: 09/14/2018 SUBJECTIVE: The patient is seen in bed, in no acute distress, and nontoxic. She has no more diarrhea. No abdominal pain. She states she wants to go home. She was seen earlier today in 365, bed 2. PHYSICAL EXAMINATION: VITAL SIGNS: Blood pressure is 158/80 and respiratory rate of 18. HEENT: Unremarkable. NECK: Supple. LUNGS: Have decreased breath sounds. HEART: Normal S1 and S2. ABDOMEN: Soft. LABORATORY DATA: Reveals the patient to have white count is 14,900 and hemoglobin is 16. Chemistries are noted. BUN of 9 and creatinine of 0.6. Urinalysis is noted. Immunology is noted. Microbiology reveals the blood cultures are negative. ASSESSMENT AND PLAN: The patient is a 63-year-old female who was admitted with sepsis, gastroparesis, and gastroenteritis. The patient wants to be discharged she needs to be followed closely. We will change to p.o. antibiotics and the patient is to follow up and have a repeat CBC with her primary and follow up with Gastroenterology. The patient does have polycythemia vera as per GI note. Gucci Piña MD
--- NOTE | 2018-09-15 01:09 | PN ---
DATE: 09/14/2018 This is [facility] visit on the medical floor. For Dr. Shine. 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 The patient now is for discharge after workup done by her primary doctor and consultants, with a depressed affect and asked if she was depressed, reporting that she was since her brother . With this, we will recommend a consult for depression with Dr. Leti Rhoades prior to discharge and if not possible, then as an outpatient to address this issue. Otherwise, the patient reports that her abdominal pain is improved and we will consider followup with Dr. Shine for her secondary polycythemia, which is probably related to her smoking history. She otherwise is in no acute distress. PHYSICAL EXAMINATION: VITAL SIGNS: Temperature 99, pulse 100, respirations 20, blood pressure 152/80, and pulse ox 97%. HEENT: Unremarkable. NECK: Supple. HEART: Regular rate. LUNGS: Clear. ABDOMEN: Soft, nontender. EXTREMITIES: No edema. SKIN: Warm and dry. NEUROLOGIC: Awake and alert with a depressed affect. LABORATORY DATA: The patient's labs were done; white blood cell count of 14.9, hemoglobin 16.9, down from 17.3 yesterday with a hematocrit of 49.4 down from 50.3 with phlebotomy of 500 mL yesterday. Her metabolic panel was done with a chloride of 95, creatinine 0.6, and non-fasting glucose of 124. Otherwise, normal metabolic panel. Her vitamin D, however, was 17.5, with this be replenished eventually by her primary doctor as the patient will now be discharged or in followup with Dr Shine as was recommended. The patient did have an MRCP done earlier today which showed no evidence of choledocholithiasis. Again, MRCP is essentially negative. ASSESSMENT: Secondary polycythemia, abdominal pain, chronic obstructive pulmonary disease, rule out sepsis which was ruled out, history of bradycardia, and leukocytosis along with depression. PLAN: Follow up with Dr. Shine as an outpatient if she is discharged later today, otherwise follow up with Dr. Javier, her primary doctor and consideration for psychiatric consult for her depression with Dr. Leti Rhoades. This is a complex patient with a comprehensive medically necessary and appropriate visit carried out in excess of 20 minutes with the patient's questions answered to her satisfaction. Salty Torres MD
--- NOTE | 2018-09-15 09:28 | CP.PCM.PCO ---
Physician Communication Note - Physician Communication Note Physician Communication Note: pt was dc
== END 2018-09-14 15:48 | disposition home or self-care (01) | DRG 901 ==
LOC: ED 22:54 → ERH 09-11 03:50 → 3RNO 09-11 04:36
PROVIDERS: ADMIT Internal Medicine; ATTEND Internal Medicine
DX: A41.9 Sepsis, unspecified organism (principal); E87.6 Hypokalemia; J44.9 Chronic obstructive pulmonary disease, unspecified; D75.1 Secondary polycythemia; I44.1 Atrioventricular block, second degree; K52.9 Noninfective gastroenteritis and colitis, unspecified; E55.9 Vitamin D deficiency, unspecified; I10 Essential (primary) hypertension; E78.5 Hyperlipidemia, unspecified; K83.8 Other specified diseases of biliary tract; R31.29 Other microscopic hematuria; K31.84 Gastroparesis; Z72.0 Tobacco use